=== PATIENT | male | born 1960 | race Caucasian/White ===

== ENCOUNTER 2020-09-18 19:36 | Emergency (ER) | payer OTHER, SELFPAY ==
[2020-09-18 19:46] VITALS: BP 144/95; PULSE 88; RESP 16; TEMP 36.9; O2SAT 100
[2020-09-18] MEDS: TETANUS,DIPHTHERIA,AC PERTUSSIS ADULT (0.5 ML) BOOSTRIX IM (19:50)
--- NOTE | 2020-09-18 19:51 | ED.ANIMALBIT ---
HPI - Animal Bite General Chief Complaint: Animal Bite Stated Complaint: dog bite left calf Time Seen by Provider: 09/18/20 19:48 Source: patient and RN notes reviewed Mode of arrival: ambulatory Limitations: no limitations History of Present Illness HPI narrative: 60-year-old male presents with concern for dog bite. Reports pain to the posterior left lower leg, sustained prior to arrival by an animal known to him. He denies decreased sensation, strength, range of motion distal to the wound. Denies any drainage from wound. Reports he cleaned it and placed a Band-Aid on it. MD complaint: animal bite Related Data Home Medications Medication Instructions Recorded Confirmed amlodipine 09/18/20 apixaban [Eliquis] mg 09/18/20 atorvastatin 09/18/20 chlorthalidone 09/18/20 duloxetine mg PO 09/18/20 hydrochlorothiazide 09/18/20 omeprazole 09/18/20 quinapril mg 09/18/20 sotalol 09/18/20 Allergies Allergy/AdvReac Type Severity Reaction Status Date / Time dronedarone [From Multaq] Allergy Severe Other Verified 09/18/20 19:50 Review of Systems Review of Systems: Narrative: CONSTITUTIONAL: Denies malaise, chills, sweats, or fever. SKIN: Reports dog bite to the back of his MUSCULOSKELETAL: Denies musculoskeletal pain NEUROLOGIC: Denies numbness, weakness All systems reviewed & are unremarkable except as noted in HPI and below PMFSH Comments At time of signature, agree with nursing past medical, surgical, social and family history. There is no relevant family history pertinent to the presenting complaint Exam Narrative: Exam Narrative: GENERAL: Well-appearing, well-nourished, and in no acute distress. HEAD: Normocephalic EYES: PERRLA, conjunctivae clear ENT: Mucous membranes moist. NECK: Supple CHEST: No respiratory distress. Speaks in full sentences. HEART: Normal peripheral pulses. EXTREMITIES: Right lower extremity has grossly normal range of motion, no edema, normal strength and sensation. SKIN: Warm, dry, no rash. Puncture wound surrounded by 3 superficial abrasions noted to the posterior left lower leg without surrounding erythema, edema, induration, no drainage noted NEURO: Alert and oriented x3. PSYCH: Normal mood and affect Course Course Emergency Course: Patient is aware of diagnosis, understands and agrees to treatment plan. Anticipatory guidance given. Patient agrees to follow-up as directed and is aware of reasons to seek care at the emergency department. Portions of this record may have been created with voice recognition software Vital Signs Vital signs: Vital Signs Temperature 98.4 F 09/18/20 19:46 Pulse Rate 88 09/18/20 19:46 Respiratory Rate 16 09/18/20 19:46 Blood Pressure 144/95 H 09/18/20 19:46 Pulse Oximetry 100 09/18/20 19:46 Temperature 98.4 F 09/18/20 19:46 Pulse Rate 88 09/18/20 19:46 Respiratory Rate 16 09/18/20 19:46 Blood Pressure 144/95 H 09/18/20 19:46 Pulse Oximetry 100 09/18/20 19:46 Reviewed. Pt has history of hypertension MDM - Animal Bite MDM Narrative Medical decision making narrative: Exam findings show no acute concerns or changes; patient is non-toxic appearing and is in no distress. Patient is appropriate for outpatient treatment and follow-up. Differential Diagnosis Differential diagnosis: Likely dog bite and rabies contact Critical Care Time Critical Care Time Critical Care Time: No Discharge Plan Discharge Clinical Impression: Dog bite Qualifiers: Encounter type: initial encounter Qualified Code(s): W54.0XXA - Bitten by dog, initial encounter Patient Disposition: Home, Self-Care Condition: Stable Instructions: Animal Bite (ED) Additional Instructions: Keep wound clean, and dry. Apply antibiotic ointment twice daily. Cover with bandage as needed to prevent contamination. Clean with soap and water twice daily, but do not soak, take baths, or swim until wound is completely healed. Do not clean with hy
== END 2020-09-18 20:09 | disposition home or self-care (01) ==
PROVIDERS: Emergency Provider Nurse Practitioner
DX: S81.832A Puncture wound without foreign body, left lower leg, initial encounter (principal); W54.0XXA Bitten by dog, initial encounter; S80.812A Abrasion, left lower leg, initial encounter; Z23 Encounter for immunization; E78.00 Pure hypercholesterolemia, unspecified; I10 Essential (primary) hypertension; K21.9 Gastro-esophageal reflux disease without esophagitis
CPT/HCPCS: 90471; 90715; 99212; G0463

== ENCOUNTER 2020-11-14 15:57 | Emergency (ER) | payer OTHER, SELFPAY ==
[2020-11-14 16:06] VITALS: BP 155/102; PULSE 87; RESP 16; TEMP 36.4; O2SAT 98
--- NOTE | 2020-11-14 16:19 | ED.EAR ---
HPI - Ear Problem General Chief complaint: Ear Stated complaint: Right Ear Pain Time Seen by Provider: 11/14/20 16:10 Source: patient and RN notes reviewed Mode of arrival: ambulatory Limitations: no limitations History of Present Illness HPI Narrative: 60-year-old male presents to the [facility] with sudden onset ear discomfort. States that he woke up feeling just fine this morning. As the day progressed started having a fullness in the right ear. Describes it as as if he was in a airplane changing altitudes. Related Data Home Medications Medication Instructions Recorded Confirmed amlodipine 09/18/20 apixaban [Eliquis] mg 09/18/20 atorvastatin 09/18/20 chlorthalidone 09/18/20 duloxetine mg PO 09/18/20 omeprazole 09/18/20 quinapril mg 09/18/20 sotalol 09/18/20 Viagra 11/14/20 Allergies Allergy/AdvReac Type Severity Reaction Status Date / Time dronedarone [From Multaq] Allergy Severe Other Verified 09/18/20 19:50 Review of Systems Review of Systems: Narrative: CONSTITUTIONAL: Denies fever, chills, or sweats. EYES: Denies visual changes, redness, or discharge. ENT: Denies rhinorrhea, congestion, sore throat, or otalgia. Decreased hearing and fullness in right ear CARDIOVASCULAR: Denies chest pain, palpitations, or edema. RESPIRATORY: Denies cough or dyspnea. GASTROINTESTINAL: Denies abdominal pain, nausea, vomiting, or diarrhea. GENITOURINARY: Denies dysuria or hematuria. SKIN: Denies rash or itching. MUSCULOSKELETAL: Denies back pain, joint pain, or myalgia. NEUROLOGIC: Denies headache, numbness, or weakness. PSYCHIATRIC: Denies anxiety or depression. All other systems reviewed are negative, except as documented in HPI. PMFSH Comments At the time of my signature, I reviewed and agree with the nursing past medical, surgical, social, and family history. There is no relevant family history pertinent to the patient complaint. Exam Narrative: Exam Narrative: GENERAL: This is a well-nourished, well-developed patient, in no apparent distress. HEAD: normocephalic, atraumatic. EYES: PERRL. Sclera clear/white. Vision is grossly intact. EARS: External ears normal, auditory canals clear and without drainage, TMs normal without perforation. Hearing grossly intact. NOSE: External nose normal with no obvious nasal discharge, nares without redness, no rhinorrhea. THROAT: Mucous membranes moist, posterior pharynx clear. NECK: Neck supple, non-tender without lymphadenopathy, masses or thyromegaly. CARDIOVASCULAR: Regular rate and rhythm without murmurs, gallops, or rubs. RESPIRATORY: Clear to auscultation. Breath sounds equal bilaterally. No wheezes, rales, or rhonchi. GASTROINTESTINAL: Abdomen soft, non-tender, nondistended. Bowel sounds are active. No hepato-splenomegaly, or palpable masses. No guarding. SKIN: warm, intact with no suspicious lesions or rash, good texture and turgor. NEURO: awake, alert, and oriented to person, place and time. There were no obvious focal neurologic abnormalities. EXTREMITIES: No clubbing, cyanosis, or edema. No joint tenderness, effusion, or edema noted. BACK: Nontender without deformity. Course Vital Signs Vital signs: Vital Signs Temperature 97.6 F 11/14/20 16:06 Pulse Rate 87 11/14/20 16:06 Respiratory Rate 16 11/14/20 16:06 Blood Pressure 155/102 H 11/14/20 16:06 Pulse Oximetry 98 11/14/20 16:06 Temperature 97.6 F 11/14/20 16:06 Pulse Rate 87 11/14/20 16:06 Respiratory Rate 16 11/14/20 16:06 Blood Pressure 155/102 H 11/14/20 16:06 Pulse Oximetry 98 11/14/20 16:06 Medical Decision Making MDM Narrative Medical decision making narrative: Discussed clinically no acute findings. Discharge instructions reviewed with patient, as well as provided in writing per nursing staff. The instructions also include specific and strict return/GO TO THE ER as well as f/u information. All questions have been answered, and the patient deny any furt
== END 2020-11-14 16:23 | disposition home or self-care (01) ==
PROVIDERS: Emergency Provider Nurse Practitioner; PCP Nurse Practitioner Family
DX: H92.01 Otalgia, right ear (principal); I48.91 Unspecified atrial fibrillation; E78.00 Pure hypercholesterolemia, unspecified; I10 Essential (primary) hypertension; K21.9 Gastro-esophageal reflux disease without esophagitis
CPT/HCPCS: 99211; G0463

== ENCOUNTER → 2023-06-20 10:59 | Outpatient (CLI) | payer OTHER, SELFPAY ==
--- NOTE | ~2023-06-20 | MR_ITS ---
MRI of the left ankle Clinical history: Achilles tendinitis Technique: Coronal proton-density and proton-density fat-sat images, axial proton-density and proton- density fat-sat images, and sagittal proton-density and proton-density fat-sat images were acquired. Findings: Syndesmotic ligaments are intact. Anterior and posterior talofibular ligaments, and calcane ofibular ligament appear intact. There is heterotopic ossification or chronic avulsion fracture fragm ent at the region of the deltoid ligament, which is itself otherwise somewhat poorly imaged. No acute injury evident in this region. Medial flexor tendons, peroneal tendons, anterior extensor tendons, and Achilles tendon are intact. N o significant abnormality of the Achilles tendon itself. There is mild amorphous edema in the posterior, lateral aspect of the calcaneal body. There is retroc alcaneal bursitis. There is mild degenerative change of the tibiotalar and subtalar joints. No signif icant joint effusion evident. Plantar fascia is intact. Normal signal preserved in the sinus Tarsi. There is small ganglion cyst ju st medial to the navicular, measuring 8 mm in diameter. Impression: Retrocalcaneal bursitis with mild amorphous marrow edema in the posterolateral calcaneal body. No pro nounced dorsal bony excrescence, but findings could represent Kayleen's syndrome is advised. Mild degenerative change of the tibiotalar and subtalar joints. 8 mm ganglion cyst just medial to the navicular. Achilles tendon is unremarkable. Reviewed, dictated and finalized at [facility]. Impression: Retrocalcaneal bursitis with mild amorphous marrow edema in the posterolateral calcaneal body. No pronounced dorsal bony excrescence, but findings could repre sent Kayleen's syndrome is advised. Mild degenerative change of the tibiotalar and subtalar joints. 8 mm ganglion cyst just medial to the navicular. Achilles tendon is unremarkable.
== END ==
PROVIDERS: PCP Podiatrist Foot & Ankle Surgery; Visit Provider Podiatrist Foot & Ankle Surgery
DX: M76.62 Achilles tendinitis, left leg (principal)
CPT/HCPCS: 73721

== ENCOUNTER → 2024-10-18 09:06 | Outpatient (CLI) | payer OTHER, SELFPAY ==
--- NOTE | ~2024-10-18 | XR_ITS ---
CHEST RADIOGRAPH, PA AND LATERAL CLINICAL HISTORY: J22 - Unspecified acute lower respiratory infection, cough . COMPARISON: None available TECHNIQUE: PA and lateral views of the chest. FINDINGS The cardiomediastinal silhouette is unremarkable. The lungs are clear. Fixation hardware within the lower cervical spine. Remaining visualized osseous structures are unremarkable. IMPRESSION: No focal infiltrate or effusion. Reviewed, dictated and finalized at location A. [facility]
== END ==
LOC: EXPCRAD 09:07
PROVIDERS: PCP Family Medicine; Visit Provider Family Medicine
DX: J22 Unspecified acute lower respiratory infection (principal)
CPT/HCPCS: 71046

== ENCOUNTER 2024-10-19 06:59 | Emergency (ER) | payer OTHER, SELFPAY ==
--- NOTE | ~2024-10-19 | XR_ITS ---
EXAMINATION: XR chest 2V DATE: 10/19/2024 08:10 INDICATION: Cough and congestion. TECHNIQUE: Frontal and lateral views of the chest were obtained. COMPARISON: Chest 2 views 10/18/2024 FINDINGS: A calcified left lung nodule is consistent with old granulomatous disease. No pleural effus ion or pneumothorax. The heart size is normal. There are changes of anterior fusion procedure in cerv ical spine. IMPRESSION: 1. No acute cardiopulmonary disease. Reviewed, dictated and finalized at location [] [facility]
[2024-10-19 07:01] VITALS: BP 138/82; PULSE 73; RESP 18; TEMP 36.4; O2SAT 99
[2024-10-19 07:17] VITALS: RESP 15; O2SAT 99
--- NOTE | 2024-10-19 07:50 | ED_ITS ---
HPI - General Adult General Chief complaint: Unspecified Stated complaint: possible fungal infection Time Seen by Provider: 10/19/24 07:29 History of Present Illness HPI narrative: 64-year-old male present to the emergency department for evaluation for night sweats body aches fatigue and viral rash. Patient states he was diagnosed with flu 10/13. Patient states that his symptoms have not yet improved. Patient was started on antibiotics by his primary care physician but states symptoms are not improved. Patient's private logic is that he suspects this is a fungal infection because approximately 11 months ago he had similar symptoms and was started on antifungal by his ENT and his symptoms resolved. Related Data Home Medications ?Medication ?Instructions ?Recorded ?Confirmed ?Last Taken ?Type atorvastatin 20 mg tablet 09/18/20 10/16/24 Unknown History sotalol 120 mg tablet 09/18/20 10/16/24 Unknown History Viagra 11/14/20 10/16/24 Unknown History Allergies Allergy/AdvReac Type Severity Reaction Status Date / Time dronedarone (From Multaq) Allergy Severe Other Verified 10/19/24 07:01 Review of Systems 2 Review of Systems: All systems reviewed & are unremarkable except as noted in HPI and below PMFSH Past Medical History Medical History Neck abrasion Hypertension Surgical History Surgical History H/O left wrist surgery H/O Achilles tendon repair H/O right knee surgery Family History Family History Father Hypertension Mother Heart disease Grandparent Heart disease Grandparent Hypertension Heart disease Social History Social History Smoking status: Never smoker Alcohol intake: never Substance use: never Substance use type: does not use Do You Feel Safe in your Home?: Yes Lack of Transportation: No Lack of Food: Never True Current Housing: I Have Housing Concerned About Future Housing: No Difficulty Paying Gas/Electric Bills: No Difficulty Paying for Meds: No Living arrangements: with family Gender identity (if verbalized by the patient): Male Sexual Orientation (if Verbalized by the Patient): Straight or Heterosexual Spiritual care concerns: No Agree to blood products: No Exam 2 Narrative: APPEARANCE: Well appearing, no pain, no distress, well-nourished. HEAD: normocephalic, atraumatic. EYES: PERRLA/EOMI, conjunctivae clear. NOSE: Normal no drainage EARS:TMS clear with good light reflex. THROAT: Pharynx clear, no exudate. NECK: Supple. No adenopathy, no masses. RESPIRATORY: Airway patent, respirations nonlabored. Clear to auscultation bilaterally, no rales, rhonchi, wheezing. CARDIOVASCULAR: Regular rate and rhythm without murmurs rubs or gallops. ABDOMINAL: Soft, nontender, nondistended, normal bowel sounds MUSCULOSKELETAL: Moves all extremities. Strength/ROM intact, No edema, No calf tenderness. NEURO: Alert. Cranial nerves II through XII intact. Grossly intact SKIN: Viral exanthem on chest Course Vital Signs Vital signs: Vital Signs Temperature 97.5 F L 10/19/24 07:01 Pulse Rate 73 10/19/24 07:01 Respiratory Rate 18 10/19/24 07:01 Blood Pressure 138/82 10/19/24 07:01 Pulse Oximetry 99 10/19/24 07:01 Oxygen Delivery Room Air 10/19/24 07:01 Temperature 97.6 F 10/19/24 09:26 Pulse Rate 68 10/19/24 09:26 Respiratory Rate 16 10/19/24 09:26 Blood Pressure 122/80 10/19/24 09:26 Pulse Oximetry 99 10/19/24 09:26 Oxygen Delivery Room Air 10/19/24 07:01 Medical Decision Making [facility] Narrative Medical decision making narrative: 64-year-old male present to the emergency department for evaluation for a viral rash. Patient did test positive for influenza A approximately 5 days ago. Patient is afebrile with no leukocytosis and hemoglobin of 14.3. Patient has no acute abnormalities on his electrolytes. Chest x-ray shows no acute cardiopulmonary abnormality. Differential Diagnosis Differential Diagnosis: Vitals and them, cellulitis, influenza, COVID, RSV, rhabdomyolysis Vital Signs Vital Signs: Vital Signs Temperature 97.5 F L 10/19/24 07:01 Pulse Rate 73 10/19/24 07:01 Respiratory Rate 18 10/19/24 07:01 Blood Pressure 138/82 10/19/24 07:01 Pulse Oximetry 99 10/19/24 07:01 Oxygen Delivery Room Air 10/19/24 07:01 Temperature 97.6 F 10/19/24 09:26 Pulse Rate 68 10/19/24 09:26 Respiratory Rate 16 10/19/24 09:26 Blood Pressure 122/80 10/19/24 09:26 Pulse Oximetry 99 10/19/24 09:26 Oxygen Delivery Room Air 10/19/24 07:01 Lab Data Lab results reviewed: Yes I reviewed the patient's lab results. 10/19/24 07:59 10/19/24 07:59 Labs: Lab Results 10/19/24 Range/Units 07:59 WBC 4.7 (4.5-10.0) K/mm3 RBC 4.77 (4.6-6.20) M/mm3 Hgb 14.3 (14.0-18.0) g/dL Hct 41.8 L (42.0-52.0) % MCV 87.6 (80-100) fl MCH 30.0 (26-34) pg MCHC 34.2 (32-36) g/dl RDW 12.3 (11.5-14.5) % Plt Count 212 (150-375) k/mm3 MPV 9.5 (7.4-10.4) fl Immature Gran % (Auto) 0.6 H (0-0.5) % Neut % (Auto) 56.8 (45.5-73.1) % Lymph % (Auto) 31.2 (18.3-44.2) % Dolores % (Auto) 10.3 H (2.6-8.5) % Eos % (Auto) 0.9 (0-4.4) % Baso % (Auto) 0.2 (0.2-1.2) % Lymph # (Auto) 1.45 (0.9-3.2) K/mm3 Dolores # (Auto) 0.5 (0.1-0.6) K/mm3 Eos # (Auto) 0.0 (0-0.3) K/mm3 Baso # (Auto) 0.0 (0.0-0.1) K/mm3 Abs Immat Gran (auto) 0.03 (0.00-0.031) K/mm3 Absolute Neuts (auto) 2.6 (1.3-6.7) K/mm3 Absolute Nucleated RBC 0.000 (0.0-0.012) K/mm3 Nucleated RBC % 0.0 (0.0-0.2) % Atypical Lymphocytes Present Platelet Estimate Adequate (Adequate) Schistocytes None seen Sodium 136 L (137-145) mmol/L Potassium 4.2 (3.4-5.0) mmol/L Chloride 100 (98-107) mmol/L Carbon Dioxide 27 (22-30) mmol/L Anion Gap 9 (4-12) mmol/L BUN 13 (9-20) mg/dL Creatinine 0.62 L (0.7-1.3) mg/dL Estim Creat Clear Calc 124 ml/min Estimated GFR > 60 (59 - ) Glucose 101 (65-110) mg/dL Lactic Acid 1.7 (0.7-2.0) mmol/L Calcium 9.1 (8.4-10.2) mg/dL Total Bilirubin 1.0 (0.2-1.3) mg/dL AST 35 (17-59) U/L ALT 50 (6-50) U/L Alkaline Phosphatase 84 (38-126) U/L Total Creatine Kinase 47 L (55-170) U/L Total Protein 8.0 (6.3-8.2) g/dL Albumin 4.5 (3.5-5.1) g/dL Imaging Data Radiologist's impression: Impressions Chest X-Ray 10/19/24 08:11 IMPRESSION: 1. No acute cardiopulmonary disease. Discharge Plan Discharge Clinical Impression: Viral exanthem Patient Disposition: Home, Self-Care Condition: Stable Instructions: Antibiotic Form, Viral Syndrome (ED), Viral Exanthem (ED) Additional Instructions: Tylenol and ibuprofen for fever and for body aches. Drink plenty of fluids. Have close follow-up with your primary care physician. If you have any worsening symptoms then please call or return to the emergency department. Patient Language: Scottish Prescriptions: No Action atorvastatin 20 mg tablet sotalol 120 mg tablet Viagra cefdinir 300 mg capsule 300 mg PO Q12H 10 Days Qty: 20 0RF benzonatate 200 mg capsule 200 mg PO TID PRN (Reason: cough) 10 Days Qty: 30 0RF albuterol sulfate [Ventolin HFA] 90 mcg/actuation HFA aerosol inhaler 1 inh inhalation Q4H PRN (Reason: shortness of breath or wheezing) Qty: 8.5 0RF Follow-up/Referrals: Zuleyma Pink MD [Primary Care Provider] -
[2024-10-19] MEDS: SODIUM CHLORIDE 0.9% IV 1,000 ML 999 ML IV CONT (07:59)
[2024-10-19 08:06] LABS: Basophils Percent Auto 0.2 % (0.2-1.2); Eosinophils Percent Auto 0.9 % (0-4.4); Hematocrit 41.8 % (42.0-52.0); Hemoglobin 14.3 g/dL (14.0-18.0); Immature Granulocyte Absolute 0.03 K/mm3 (0.00-0.031); Immature Granulocyte Percent A 0.6 % (0-0.5); Lymphocytes Absolute Auto 1.45 K/mm3 (0.9-3.2); Lymphocytes Percent Auto 31.2 % (18.3-44.2); Mean Corpuscular HGB Conc 34.2 g/dl (32-36); Mean Corpuscular Volume 87.6 fl (80-100); Mean Platelet Volume 9.5 fl (7.4-10.4); Monocytes Absolute Auto 0.5 K/mm3 (0.1-0.6); Monocytes Percent Auto 10.3 % (2.6-8.5); Neutrophils Absolute Auto 2.6 K/mm3 (1.3-6.7); Neutrophils Percent Auto 56.8 % (45.5-73.1); Platelet Count Result 212 k/mm3 (150-375); Red Blood Count 4.77 M/mm3 (4.6-6.20); Red Cell Distribution Width 12.3 % (11.5-14.5); White Blood Count 4.7 K/mm3 (4.5-10.0)
[2024-10-19 08:16] LABS: Alanine Aminotransferase 50 U/L (6-50); Albumin Level 4.5 g/dL (3.5-5.1); Alkaline Phosphatase 84 U/L (38-126); Anion Gap 9 mmol/L (4-12); Aspartate Amino Transferase 35 U/L (17-59); Blood Urea Nitrogen 13 mg/dL (9-20); Calcium 9.1 mg/dL (8.4-10.2); Carbon Dioxide 27 mmol/L (22-30); Chloride 100 mmol/L (98-107); Creatine Kinase 47 U/L (55-170); Estimated CRCL calculation 124 ml/min; Estimated Glomerular Filt Rate > 60; Glucose 101 mg/dL (65-110); Lactic Acid Reflex 1.7 mmol/L (0.7-2.0); Potassium 4.2 mmol/L (3.4-5.0); Sodium 136 mmol/L (137-145)
[2024-10-19 08:27] LABS: Atypical Lymphocytes Present; Platelet Estimate Adequate (Adequate); Schistocytes None Seen
[2024-10-19 08:35] VITALS: BP 110/71; PULSE 70; RESP 15; O2SAT 100
[2024-10-19 09:26] VITALS: BP 122/80; PULSE 68; RESP 16; TEMP 36.4; O2SAT 99
--- OUTSIDE RECORDS SUMMARY | 2024-10-22 11:28 | XMS_ITS | Patient Health Summary ---
Author Organization [facility] Address [address] [address] Care Team Providers Care Stationary Engineer Apprentice Name Role Phone Ronal Matson GEOVANY-ANTONY Primary Care Provider [phone] Note from [facility],non-owned Affiliates and Associated Physician Practices is amultiple site organization consisting of ambulatory clinics and hospital sitesin [place], [place], [place] and [place]. This disclosure is being madepursuant to the Care Everywhere program and may not contain all information available regarding this patient. Last updated 18.[facility] Allergies * Dronedarone(Rash) -Medium Criticality * Amlodipine Base,Inactive * Penicillin G(Unknown),Inactive * Penicillins,Inactive * Quinapril(Unknown),Inactive Medications * Be aware that medications may not be up to date on this document. Alwaysverify current medications with the patient. * omeprazole EC (PRILOSEC OTC) 20 MG tablet Take 1 (one) tablet by mouth daily before breakfast * atorvastatin (LIPITOR) 20 MG tablet Take 1 (one) tablet by mouth at bedtime * DULoxetine (CYMBALTA) 30 MG capsule Take 1 (one) capsule by mouth once daily * chlorthalidone (HYGROTON) 25 MG tablet(Started 07/15/2020) Take 1 tablet by mouth once daily 5 refills by 07/15/2021 * sotalol (BETAPACE) 120 MG tablet(Started 09/01/2020) Take 1 tablet by mouth 2 times daily 3 refills by 09/01/2021 * cyclobenzaprine (FLEXERIL) 10 MG tablet Take 10 mg by mouth * losartan (COZAAR) 25 MG tablet(Started 07/15/2021) * predniSONE (DELTASONE) 5 MG tablet(Started 12/13/2021) Take 5 mg by mouth once daily * ibuprofen (MOTRIN) 200 MG tablet Take 2 (two) tablets by mouth as needed * HYDROcodone-acetaminophen (NORCO) 5-325 MG tablet(Started 02/01/2021) * dilTIAZem coated beads 24hr (CARDIZEM CD) 120 MG capsule(Started 02/14/2022) Take 1 capsule by mouth once daily * clonazePAM, disintegrating, (KLONOPIN WAFER) 0.25 MG tablet(Started 12/14/2021) Take 1 (one) tablet by mouth 2 times daily as needed * amitriptyline (ELAVIL) 10 MG tablet(Started 10/06/2021) TAKE 1 TABLET BY MOUTH EVERY DAY AT NIGHT * albuterol HFA (Proventil; Ventolin; Proair) 108 (90 Base) MCG/ACT inhaler (Started 11/17/2023) Inhale 2 (two) puffs by mouth every 4 hours as needed * clonazePAM (KlonoPIN) 0.5 MG tablet(Started 10/10/2023) Take 1 (one) tablet by mouth as needed * dilTIAZem SR 24hr (Dilacor XR) 240 MG capsule(Started 12/01/2023) Take 1 (one) capsule by mouth once daily * DULoxetine (Cymbalta) 60 MG capsule(Started 11/06/2023) Take 1 (one) capsule by mouth once daily * fluticasone propionate (Flonase) 50 MCG/ACT nasal spray(Started 11/16/2023) [place] 1 (one) spray to 2 (two) sprays into the nose as needed * losartan (Cozaar) 50 MG tablet(Started 11/30/2023) Take 1 (one) tablet by mouth once daily * omeprazole EC (PriLOSEC OTC) 20 MG tablet(Started 12/05/2023) Take 1 (one) tablet by mouth 2 times daily, before breakfast and supper for 30 days 3 refills by 12/04/2024 * sildenafil (Viagra) 100 MG tablet(Started 09/16/2024) 1/2-1 tab on an empty stomach as needed before sexual activity 2 refills by 09/16/2025 * tamsulosin (Flomax) 0.4 MG capsule(Started 09/16/2024) Take 1 (one) capsule by mouth once daily At the same time every day after a meal. 3 refills by 09/16/2025 * benzonatate (Tessalon) 200 MG capsule(Started 10/16/2024) Take 1 (one) capsule by mouth 3 times daily * cefdinir (Omnicef) 300 MG capsule(Started 10/16/2024) Take 1 (one) capsule by mouth 2 times daily * fluconazole (Diflucan) 150 MG tablet(Started 10/20/2024) Take 1 (one) tablet by mouth once daily for 14 days Active Problems Problem Noted Date Diagnosed Date MICKY (obstructive sleep apnea) 12/05/2023 Tonsillar hypertrophy 12/05/2023 Nasal septal deviation 12/05/2023 Nasal turbinate hypertrophy 12/05/2023 Perennial allergic rhinitis 12/05/2023 Sensorineural hearing loss (SNHL) of both ears 0 12/05/2023 Gastroesophageal reflux dise ase with esophagitis without hemorrhage 12/05/2023 Diverticulosis 12/07/2020 External hemorrhoids 12/07/2020 PAF (paroxysmal atrial fibrillation) 05/09/2020 Hypercholesteremia 11/19/2016 Anxiety disorder 11/19/2016 Precordial pain 11/19/2016 Essential hypertension 11/19/2016 Symptomatic PVCs 06/09/2013 Resolved Problems Problem Noted Date Diagnosed Date Resolved Date Thrush 12/05/2023 01/02/2024 Heart disease 07/24/2013 11/19/2016 Hypertensive heart disease w [facility] heart failure 07/07/2013 05/09/2020 Immunizations * Covid Moderna primary monovalent 12+ yr 0.5mL(Given 08/31/2021, 12/19/2020, 11/03/2020) * HEP A VACCINE, ADULT(Given 03/31/2013) * PNEUMOCOCCAL PPSV23(Given 07/21/2020) Social History Tobacco Use Types Packs/Day Years Used Date Smoking Tobacco: Former Smokeless Tobacco: Former Tobacco Cessation:Counseling Given: Not Answered Alcohol Use Standard Drinks/Week Comments Not Currently 15 (1 standard drink = 0.6 oz pu re alcohol) Sex and Gender Information Value Date Recorded Sex Assigned at Not on file Gender Identity Not on file Sexual Orientation Not on file Last Filed Vital Signs Vital Sign Reading Time Taken Comments Blood Pressure 131/84 10/20/2024 9:19 AM TRAFFIC TECHNICIAN Pulse 80 10/20/2024 9:19 AM TRAFFIC TECHNICIAN Temperature 37.1 ??C (98.7 ??F) 09/16/2024 4:16 PM CS T Respiratory Rate 18 02/16/2022 3:34 PM CDT Oxygen Saturation 98% 09/16/2024 4:16 PM TRAFFIC TECHNICIAN Inhaled Oxygen Concentration - - Weight 105.7 kg (233 lb) 10/20/2024 9:19 AM TRAFFIC TECHNICIAN Height 182.9 cm (6') 10/20/2024 9:19 AM TRAFFIC TECHNICIAN Body Mass Index 31.6 10/20/2024 9:19 AM TRAFFIC TECHNICIAN Procedures * KS LARYNGOSCOPY,FLEX FIBER,DIAGNOSTIC(Performed 10/20/2024) Performed for MICKY (obstructive sleep apnea), Perennial allergic rhinitis, Sensorineural hearing loss (SNHL) of both ears, Gastroesophageal reflux disease with esophagitis without hemorrhage, Thrush * URINALYSIS W/MICROSCOPIC NO CULTURE(Performed 09/16/2024) Performed for Lower urinary tract symptoms (LUTS) * URINALYSIS AUTO - POINT OF CARE (AMB) [facility](Performed 09/16/2024) Performed for Lower urinary tract symptoms (LUTS) * KS MSR PVR U&/BLADD CAPCTY US NON(Performed 09/16/2024) Performed for Lower urinary tract symptoms (LUTS) * KS LARYNGOSCOPY,FLEX FIBER,DIAGNOSTIC(Performed 12/05/2023) Performed for MICKY (obstructive sleep apnea), Perennial allergic rhinitis, Sensorineural hearing loss (SNHL) of both ears, Gastroesophageal reflux disease with esophagitis without hemorrhage, Thrush * KS MSR PVR U&/BLADD CAPCTY US NON(Performed 04/10/2023) Performed for History of BPH * URINALYSIS AUTO - POINT OF CARE (AMB) [facility](Performed 04/10/2023) Performed for History of BPH * KS MSR PVR U&/BLADD CAPCTY US NON(Performed 02/16/2022) Performed for History of BPH * URINALYSIS AUTO - POINT OF CARE (AMB) [facility](Performed 02/16/2022) Performed for History of BPH * KS MSR PVR U&/BLADD CAPCTY US NON(Performed 08/11/2021) Performed for Epididymal mass * URINALYSIS AUTO - POINT OF CARE (AMB) [facility](Performed 08/11/2021) Performed for Epididymal mass * KS LABYRINTHOTOMY(Performed 12/01/2020) Performed for Right asymmetrical SNHL * KS LABYRINTHOTOMY(Performed 11/24/2020) Performed for Sudden-onset sensorineural hearing loss * AUDIOLOGY/TYMPANOMETRY ORDER(Performed 11/21/2020) * EKG 12-LEAD(Performed 10/26/2020) Performed for PAF (paroxysmal atrial fibrillation) ([facility] Encounter for monitoring sotalol therapy * EKG 12-LEAD(Performed 09/06/2020) Performed for PAF (paroxysmal atrial fibrillation) ([facility]) * EKG 12-LEAD(Performed 09/02/2020) Performed for PAF (paroxysmal atrial fibrillation) ([facility]), Encounter for monitoring sotalol therapy * EKG 12-LEAD(Performed 09/01/2020) Performed for PAF (paroxysmal atrial fibrillation) ([facility]) * BASIC METABOLIC PANEL (CALCIUM TOTAL)(Performed 08/11/2020) Performed for Essential hypertension * EKG 12-LEAD(Performed 05/27/2020) Performed for Hypertensive heart disease without heart failure, Symptomatic PVCs * CARDIOVERSION(Performed 05/09/2020) * ECHOCARDIOGRAM STRESS(Performed 03/24/2018) Performed for Hypertensive heart disease without heart failure, Precordial pain, Preop cardiovascular exam * EKG 12-LEAD(Performed 03/20/2018) * LAB MISC TEST(Performed 08/29/2016) * LAB HISTORICAL RESULTS-ONBASE(Performed 06/29/2010) * LAB HISTORICAL RESULTS-ONBASE(Performed 06/29/2010) * LAB HISTORICAL RESULTS-ONBASE(Performed 06/29/2010) * LAB HISTORICAL RESULTS-ONBASE(Performed 06/29/2010) * LAB HISTORICAL RESULTS-ONBASE(Performed 06/29/2010) Results * KS LARYNGOSCOPY,FLEX FIBER,DIAGNOSTIC (10/20/2024 5:16 PM TRAFFIC TECHNICIAN) Narrative Surya Martinez MD - 10/20/2024 5:16 PM TRAFFIC TECHNICIAN Surya Martinez MD ? 10/20/2024 ??5:20 PM Procedure Note Anesthesia: Lidocaine 2% and Pola-Synephrine 1/2% Endoscopy Type: ??Flexible Bzhog-Etwshzbzwhsdnx-Tpozxdjbikaq Procedure Details: Informed consent was obtained. ??The patient was placed in the sitting position. ??After topical anesthesia and decongestion, the 4 mm laryngoscope was passed. ??The nasal cavities, nasopharynx, oropharynx, hypopharynx, and larynx were all examined. ??Vocal cords were examined during respiration and phonation. ??The following findings were noted: ??Normal nasal cavity. ??Adenoids obstructing 5% of postnasal space (normal less than 40%). ?? Moderate diffuse erythema of hypopharynx and larynx, no obvious adherent plaques or fungal debris (though could still be c/w low grade thrush). ??Otherwise normal nasopharynx, oropharynx, hypopharynx, and larynx. ??Good TVC mobility bilaterally. ?? The patient tolerated procedure well. Complications: None Surya Martinez MD PROCEDURE/MINOR S URGICAL ORDERABLES * (ABNORMAL) URINALYSIS W/MICROSCOPIC NO CULTURE (09/16/2024 4:40 PM TRAFFIC TECHNICIAN) Color UA Yellow Straw, Yellow 09/16/2024 5:03 PM [facility] Clarity UA Clear Clear 09/16/2024 5:03 PM [facility] Specific Exline UA 1.016 1.005 - 1.030 09/16/2024 5:03 PM [facility] pH UA 5.0 5.0 - 8.0 pH 09/16/2024 5:03 PM [facility] Protein UA Negative Negative 09/16/2024 5:03 PM [facility] Glucose UA Negative Negative 09/16/2024 5:03 PM [facility] Ketone UA Negative Negative 09/16/2024 5:03 PM [facility] Bilirubin UA Negative Negative 09/16/2024 5:03 PM [facility] Blood UA 1+(A) Negative 09/16/2024 5:03 PM [facility] Nitrite UA Negative Negative 09/16/2024 5:03 PM [facility] Leukocyte Esterase Negative Negative 09/16/2024 5:03 PM [facility] Urobilinogen UA Negative Negative mg/dL 09/16/2024 5:03 PM [facility] RBC UA 0-2 None Seen, 0-2, 3-5 /HPF 09/16/2024 5:03 PM [facility] WBC UA 0-5 None Seen, 0-5 /HPF 09/16/2024 5:03 PM [facility] Squamous Epithelial Cells UA None Seen None Seen, 0-2, 3-5 /HPF 09/16/2024 5:03 PM [facility] Urine URINE SPECIMEN OBTAINED BY CLEAN CATCH PROCEDURE / Unknown Collection / Unknown 09/16/2024 4:40 PM TRAFFIC TECHNICIAN 09/16/2024 4:51 PM TRAFFIC TECHNICIAN Narrative [facility] - 09/16/2024 5:03 PM TRAFFIC TECHNICIAN Jose Martin Weinstein MD LAB - URINALYSIS O RDERABLES [address] [address], [facility] [phone] * URINALYSIS AUTO - POINT OF CARE (AMB) [facility] (09/16/2024 4:25 PM TRAFFIC TECHNICIAN) Only the most recent of4 resultswithin the time period is included. Glucose UA neg [facility] [address] Bilirubin UA POCT neg [facility] [address] Ketones UA POCT neg [facility] [address] Specific Exline UA 1.[address] [facility] [address] Blood Urine POCT +- 10Ery/uL [facility] [address] pH UA 6.0 [facility] [address] Protein UA neg [facility] [address] Urobilinogen UA neg 0.2mg/dL [facility] [address] Nitrite UA neg [facility] [address] WBC UA neg [facility] [address] Urine URINE / Unknown 09/16/2024 4 :25 PM TRAFFIC TECHNICIAN Jose Martin Weinstein MD LAB - POINT OF CAR E ORDERABLES [facility] [address] [facility] [address] [place] [address], [facility] [phone] * KS MSR PVR U&/BLADD CAPCTY US NON (09/16/2024 4:24 PM TRAFFIC TECHNICIAN) Narrative Nikita Garcia MA - 09/16/2024 4:24 PM TRAFFIC TECHNICIAN Nikita Garcia MA ? 09/16/2024 ??4:43 PM PVR=39mL Jose Martin Weinstein MD PROCEDURE/MINOR MOTLEY RGICAL ORDERABLES * KS LARYNGOSCOPY,FLEX FIBER,DIAGNOSTIC (12/05/2023 5:34 PM TRAFFIC TECHNICIAN) Narrative Surya Martinez MD - 12/05/2023 5:34 PM TRAFFIC TECHNICIAN Surya Martinez MD ? 12/05/2023 ??5:38 PM Procedure Note Anesthesia: Lidocaine 2% and Pola-Synephrine 1/2% Endoscopy Type: ??Flexible Tpape-Upcwvwrssjqlpz-Gpbluttyjvjq Procedure Details: Informed consent was obtained. ??The patient was placed in the sitting position. ??After topical anesthesia and decongestion, the 4 mm laryngoscope was passed. ??The nasal cavities, nasopharynx, oropharynx, hypopharynx, and larynx were all examined. ??Vocal cords were examined during respiration and phonation. ??The following findings were noted: ??Normal nasal cavity bilaterally. ?? No polyps, masses, or drainage. ??Some increased erythema and shallow ulcerations in the hypopharynx (similar to oral cavity). ?? Otherwise normal nasopharynx, oropharynx, hypopharynx. ??Good TVC mobility bilaterally. Mild postglottic edema, possibly c/w GERD. ?? The patient tolerated procedure well. Complications: None Surya Martinez MD PROCEDURE/MINOR S URGICAL ORDERABLES * KS MSR PVR U&/BLADD CAPCTY US NON (04/10/2023 3:51 PM CDT) Narrative Soniya Abdul LPN - 04/10/2023 3:51 PM CDT Soniya Abdul LPN ? 04/10/2023 ??3:52 PM PVR = 139 mL Jose Martin Weinstein MD PROCEDURE/MINOR MOTLEY RGICAL ORDERABLES * KS MSR PVR U&/BLADD CAPCTY US NON (02/16/2022 3:44 PM CDT) Narrative Hinds Nishajayeshjerrica - 02/16/2022 3:44 PM CDT Mayte Hinds ? 02/16/2022 ??3:48 PM Bladder scan completed. 166ml post void residual. Jose Martin Weinstein MD PROCEDURE/MINOR MOTLEY RGICAL ORDERABLES * KS MSR PVR U&/BLADD CAPCTY US NON (08/11/2021 11:32 AM TRAFFIC TECHNICIAN) Narrative Kathie Tijerina - 08/11/2021 11:32 AM TRAFFIC TECHNICIAN Kathie Tijerina ? 08/11/2021 ??1:40 PM PVR is 67 mL. Jose Martin Weinstein MD PROCEDURE/MINOR MOTLEY RGICAL ORDERABLES * KS LABYRINTHOTOMY (12/01/2020 9:31 PM TRAFFIC TECHNICIAN) Narrative Surya Santiago MD - 12/01/2020 9:31 PM TRAFFIC TECHNICIAN Surya Santiago MD ? 12/01/2020 ??9:44 PM Procedure Note Procedure: ??Transtympanic Steroid Injection ??right Anesthesia: Topical phenol Indications: The patient has a hx of right ??which has has been recalcitrant in nature and has failed other therapies. ??They understand the risks and benefits of transtympanic steroidinjection and wishes to proceed. Procedure Details: ??After obtaining consent the patient was placed in a supine position and the head was turned in a lateral position. The ipsilateral ear was examined with an operating microscope. ?? The ear canal was clearedof cerumen and when the TM could be fully visualized the TM in the posterior inferior quadrant demonstrated a residual perforation. A 25 gauge spinal needle was then utilized to inject 0.5 cc of 40 mg/ml of kenalog into the middle ear space via the perforation Findings: healthy middle ear mucosa. Condition: Stable. ??Patient tolerated procedure well. Complications: None I was present for the entirety of the procedure Surya Santiago MD PROCEDURE/MINOR S URGICAL ORDERABLES * KS LABYRINTHOTOMY (11/24/2020 7:40 PM TRAFFIC TECHNICIAN) Narrative Surya Santiago MD - 11/24/2020 7:40 PM TRAFFIC TECHNICIAN Surya Santiago MD ? 11/24/2020 ??7:46 PM Procedure Note Procedure: ??Transtympanic Steroid Injection ??right Anesthesia: Topical phenol Indications: The patient has a hx of right sided SSNHL which has has been recalcitrant in nature and has failed other therapies. ?? They understand the risks and benefits of transtympanic steroid injection and wishes to proceed. Procedure Details: ??After obtaining consent the patient was placed in a supine position and the head was turned in a lateral position. The ipsilateral ear was examined with an operating microscope. ?? The ear canal was clearedof cerumen and when the TM could be fully visualized a minute amount of phenol was applied using a micro cotton tip applicator to the TM in the posterior inferior quadrant. A 25 gauge spinal needle was then utilized to inject 0.5 cc of 40 mg/ml kenalog into the middle ear space. Findings: Well aerated right middle ear. Condition: Stable. ??Patient tolerated procedure well. Complications: None I was present for the entirety of the procedure Surya Santiago MD PROCEDURE/MINOR S URGICAL ORDERABLES * AUDIOLOGY/TYMPANOMETRY ORDER (11/21/2020 9:19 AM TRAFFIC TECHNICIAN) Narrative Elvie Patterson Jaqueline - 11/21/2020 9:52 AM TRAFFIC TECHNICIAN History: Huang Royal arrived for a hearing evaluation. ??Patient reports issues with sudden hearing loss, tinnitus, and ear fullness. ??He reports some initial off balance feeling. ??He denies otalgia. ?? There is a minimal history of noise exposure. There is a family history of hearing loss. ?? There is not a history of surgery on either ear(s). Results: Puretone air/bone conduction testing revealed a normal sloping to profound sensorineural hearing loss in the right ear and a normal sloping to moderate sensorineural hearing loss 3000 Hz through 4000 Hz, rising to normal hearing 6000 Hz through 8000 Hz. ??Speech understanding was good in the right ear and excellent in the left ear. Immittance measures revealed a Type A tympanogram in the right ear, indicating normal middle ear function. ??Results for the left ear revealed a Type As tympanogram, indicating shallow middle ear function in that ear. Recommendations: 1) ENT consult. 2) Hearing evaluation per medical recommendation/following treatment. 3) Amplification pending medical clearance/interest. Jaqueline Leone. [facility]-A Clinical Home Health Specialist [facility]-Department of Otolaryngology/Audiology [facility] [address] [place] [address] ([facility]) [place] [address] Elvie Parsons AUDIOLOGY SERVICES O RDERABLES * EKG 12-LEAD (10/26/2020 12:50 PM TRAFFIC TECHNICIAN) Only the most recent of6 resultswithin the time period is included. Narrative BaldomeroAby royal - 10/26/2020 12:50 PM TRAFFIC TECHNICIAN Ayan Cee RN ? 10/26/2020 12:52 PM See scan Procedure Note Ayan Cee RN - 10/26/2020 12:50 PM CST See scan Mor Ku MD ECG ORDERABLES * (ABNORMAL) BASIC METABOLIC PANEL (BMP) (08/11/2020 3:19 PM TRAFFIC TECHNICIAN) Glucose 110(H) 65 - 99 mg/dL [facility] INSURANCE BILL BUN 17 6 - 24 mg/dL [facility] INSURANCE BILL Creatinine 0.89 0.76 - 1.27 mg/dL [facility] INSURANCE BILL eGFR by MDRD 94 >59 mL/min/1.7 3 [facility] INSURANCE BILL eGFR by MDRD 108 >59 mL/min/1.7 3 [facility] INSURANCE BILL BUN/Creatinine Ratio 19 9 - 20 [facility] INSURANCE BILL Sodium 136 134 - 144 mmol/L [facility] INSURANCE BILL Potassium 3.9 3.5 - 5.2 mmol/L [facility] INSURANCE BILL Chloride 93(L) 96 - 106 mmol/L [facility] INSURANCE BILL CO2 25 20 - 29 mmol/L [facility] INSURANCE BILL Calcium 9.8 8.7 - 10.2 mg/dL [facility] INSURANCE BILL Blood BLOOD SPECIMEN / Unknown 08/11/2020 3:19 PM TRAFFIC TECHNICIAN 08/11/2020 Narrative Resulting Agency Comment Lab Testing performed at: [facility] [address] ??[facility] [id number] Mor Ku MD LAB - CHEMISTRY JEANCARLOSJuventino RAGSDALE [facility] INSURANCE BILL [address] [place] [address] * CARDIOVERSION (05/09/2020) Historical Provider MD GENERAL JANNETH Pena ORDERABLES * ECHOCARDIOGRAM STRESS (03/24/2018 3:03 PM CDT) Narrative Maura Espinal RDMS - 03/24/2018 3:03 PM CDT Maura Espinal RDMS ? 03/24/2018 ??3:03 PM See scan Mor Ku MD ECHO ORDERABLES * LAB MISC TEST (08/29/2016) Other BLOOD SPECIMEN / Unknown Eliana Castillo RN LAB SEND OUT * LAB HISTORICAL RESULTS-ONBASE (06/29/2010) Only the most recent of5 resultswithin the time period is included. 06/29/2010 Historical Provider LAB - CHEMISTRY [facility] Care Teams Stationary Engineer Apprentice Relationship Specialty Start Date End Date Ronal Matson APRN-[employer]SULTANT [address] [id number] PCP - General Nurse Practitioner 03/24/18
--- OUTSIDE RECORDS SUMMARY | 2024-10-22 11:28 | XMS_ITS | Clinical Summary ---
Author Organization [facility] Address [address] [place] [address] [address] [place], [place] [address] Phone Care Team Providers Care Director Safety Council Name Role Phone [facility], External Provider Primary Care Provider U cathleenailmarilyn Allergies Active Allergy Reactions Criticality Noted Date Comments Amlodipine Other (See Comments) 03/02/2013 Stiff neck Penicillin G Unknown 08/22/2010 Quinapril Unknown Medications pregabalin (LYRICA) 150 mg Oral Cap Take 1 Cap by mouth daily. Active aspirin (MILAN) 81 mg Oral Tab Take 1 Tab by mouth daily. Active escitalopram (LEXAPRO) 10 mg Oral tablet Take 1 Tab by mouth daily. Active simvastatin (ZOCOR) 20 mg tablet TAKE 1 TABLET IN THE EVENING 90 Tab 3 05/17/2014 Active carvedilol (COREG) 12.5 mg tablet Take 1 Tab by mouth 2 times daily. 180 Tab 3 05/23/2014 Active quinapril (ACCUPRIL) 20 mg tablet Take 1 Tab (20 mg) by mouth 2 times daily. 180 Tab 3 01/03/2015 Active Active Problems Patient Care Coordination No te Formatting of this note migh t be different from the original. Payroll Coordinator - Dr Mor Ku Problem Noted Date Diagnosed Date Diastolic dysfunction, left ventricle 07/24/2013 Benign hypertensive heart disease without heart failure 07/07/2013 Overview (07/07/2013): Echo 06/2013 -- Moderate to severe asymmetric septal hypertrophy with mild to moderate concentric hypertrophy Obesity 03/25/2013 Chest pain Overview (07/04/2011): Chest pain syndrome with a negative cardiac catheterization in 2009, showing only angiographic plaquing and mild ectasia Anxiety disorder Hyperlipidemia Ganglion cyst Overview (08/22/2010): Ganglion cyst removal Resolved Problems Problem Noted Date Diagnosed Date Resolved Date Essential hypertension, benign 03/25/2013 07/07/2013 Hypertension 03/25/2013 Family History Medical History Relation Name Comments Heart Disease Mother Valve problem Relation Name Status Comments Mother Social History Tobacco Use Types Packs/Day Years Used Date Smoking Tobacco: Former Comments:and a former cocain e user Alcohol Use Standard Drinks/Week Comments No 0 (1 standard drink = 0.6 oz pur e alcohol) Sex and Gender Information Value Date Recorded Sex Assigned at Not on file Legal Sex 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 Gender Identity Not on file Sexual Orientation Not on file Last Filed Vital Signs Vital Sign Reading Time Taken Comments Blood Pressure 118/88 07/24/2013 7:55 AM CDT Pulse 52 07/24/2013 7:55 AM CDT Temperature - - Respiratory Rate - - Oxygen Saturation - - Inhaled Oxygen Concentration - - Weight 96.6 kg (213 lb) 07/24/2013 7:55 AM CDT Height 180.3 cm (5' 11 ) 07/24/2013 7:55 AM CDT Body Mass Index 29.71 07/24/2013 7:55 AM CDT Plan of Treatment Health Maintenance Due Date Last Done Comments DTAP/TDAP/TD VACCINES (1 - Tdap) 1980 FIT-DNA Q 3 years 2006 FIT/FOBT Q 1 year 2006 Flex Sig/CT Colonography Q 5 years 2006 ZOSTER VACCINE (1 of 2) 2011 RSV VACCINE (60+ or ) (1 - Risk 60-74 years 1-dose series) 2021 INFLUENZA VACCINE (#1) 2024 COLORECTAL SCREENING 09/13/2030 09/13/2020 Colorectal Cancer Screening 09/13/2030 Insurance Care Teams Director Safety Council Relationship Specialty Start Date End Date [facility], External Provider [address] [place] [address] PCP - General 12/08/20
--- OUTSIDE RECORDS SUMMARY | 2024-10-22 11:28 | XMS_ITS | Referral Summary ---
Author Organization [facility] Address [address] [facility] [place] [address] Care Team Providers Care Powdered Metal Supervisor Name Role Phone Ronal Matson APRN-LOG INSPECTOR Primary Care Provider [phone] Source Comments [facility],non-owned Affiliates and Associated Physician Practices is amultiple site organization consisting of ambulatory clinics and hospital sitesin [place], [place], [place] and [place]. This disclosure is being madepursuant to the Care Everywhere program and may not contain all information available regarding this patient. Last updated 18.[facility] Encounters Date Type Department Care Team Description 10/20/2024 Travel 10/20/2024 9:15 AM EMS EDUCATOR Office Visit [facility] [address] [place] [phone] Surya Martinez MD MICKY (obstructive sleep apnea) (Primary Dx); Perennial allergic rhinitis; Sensorineural hearing loss (SNHL) of both ears; Gastroesophageal reflux disease with esophagitis without hemorrhage; Thrush 10/15/2024 Travel 09/16/2024 4:50 PM EMS EDUCATOR - 09/16/2024 11:59 PM EMS EDUCATOR Hospital Encounter [facility] [address] [place] [phone] Discharge Disposition: Home or Self Care 09/16/2024 4:00 PM EMS EDUCATOR Office Visit [facility] - Urology [address] [place] [phone] Jose Martin Weinstein MD Lower urinary tract symptoms (LUTS) (Primary Dx) 09/10/2024 Orders Only [facility] [address] [facility], [place] [phone] Karlee Rivas LPN History of BPH from Last 3 Months Allergies Active Allergy Reactions Criticality Noted Date Comments Dronedarone Rash Medium 02/25/2021 Medications * Be aware that medications may not be up to date on this document. Alwaysverify current medications with the patient. Medication Sig Dispensed Refills Start Date End Date Status omeprazole EC (PRILOSEC OTC) 20 MG tablet Take 1 (one) tablet by mouth daily before breakfast Active atorvastatin (LIPITOR) 20 MG tablet Take 1 (one) tablet by mouth at bedtime Active DULoxetine (CYMBALTA) 30 MG capsule Take 1 (one) capsule by mouth once daily Active chlorthalidone (HYGROTON) 25 MG tablet Take 1 tablet by mouth once daily 30 tablet 5 07/15/2020 Active Additional Information Patient not taking.Reported on 04/10/2023 sotalol (BETAPACE) 120 MG tablet Take 1 tablet by mouth 2 times daily 180 tablet 3 09/01/2020 Active Additional Information Patient not taking.Reported on 12/05/2023 cyclobenzaprine (FLEXERIL) 10 MG tablet Take 10 mg by mouth Active losartan (COZAAR) 25 MG tablet 07/15/2021 Active predniSONE (DELTASONE) 5 MG tablet Take 5 mg by mouth once daily 12/13/2021 Active ibuprofen (MOTRIN) 200 MG tablet Take 2 (two) tablets by mouth as needed Active HYDROcodone-aceta minophen (NORCO) 5-325 MG tablet 02/01/2021 Active dilTIAZem coated beads 24hr (CARDIZEM CD) 120 MG capsule Take 1 capsule by mouth once daily 02/14/2022 Active clonazePAM, disintegrating, (KLONOPIN WAFER) 0.25 MG tablet Take 1 (one) tablet by mouth 2 times daily as needed 12/14/2021 Active amitriptyline (ELAVIL) 10 MG tablet TAKE 1 TABLET BY MOUTH EVERY DAY AT NIGHT 10/06/2021 Active albuterol HFA (Proventil; Ventolin; Proair) 108 (90 Base) MCG/ACT inhaler Inhale 2 (two) puffs by mouth every 4 hours as needed 11/17/2023 Active clonazePAM (KlonoPIN) 0.5 MG tablet Take 1 (one) tablet by mouth as needed 10/10/2023 Active dilTIAZem SR 24hr (Dilacor XR) 240 MG capsule Take 1 (one) capsule by mouth once daily 12/01/2023 Active DULoxetine (Cymbalta) 60 MG capsule Take 1 (one) capsule by mouth once daily 11/06/2023 Active fluticasone propionate (Flonase) 50 MCG/ACT nasal spray Bradford 1 (one) spray to 2 (two) sprays into the nose as needed 11/16/2023 Active losartan (Cozaar) 50 MG tablet Take 1 (one) tablet by mouth once daily 11/30/2023 Active omeprazole EC (PriLOSEC OTC) 20 MG tablet Take 1 (one) tablet by mouth 2 times daily, before breakfast and supper for 30 days 60 tablet 3 12/05/2023 Active sildenafil (Viagra) 100 MG tablet 1/2-1 tab on an empty stomach as needed before sexual activity 30 tablet 2 09/16/2024 Active tamsulosin (Flomax) 0.4 MG capsule Take 1 (one) capsule by mouth once daily At the same time every day after a meal. 90 capsule 3 09/16/2024 Active benzonatate (Tessalon) 200 MG capsule Take 1 (one) capsule by mouth 3 times daily 10/16/2024 Active cefdinir (Omnicef) 300 MG capsule Take 1 (one) capsule by mouth 2 times daily 10/16/2024 Active fluconazole (Diflucan) 150 MG tablet Take 1 (one) tablet by mouth once daily for 14 days 14 tablet 10/20/2024 11/03/2024 Active Active Problems Problem Noted Date Diagnosed Date MICKY (obstructive sleep apnea) 12/05/2023 Tonsillar hypertrophy 12/05/2023 Nasal septal deviation 12/05/2023 Nasal turbinate hypertrophy 12/05/2023 Perennial allergic rhinitis 12/05/2023 Sensorineural hearing loss (SNHL) of both ears 0 12/05/2023 Gastroesophageal reflux dise ase with esophagitis without hemorrhage 12/05/2023 Diverticulosis 12/07/2020 External hemorrhoids 12/07/2020 PAF (paroxysmal atrial fibrillation) 05/09/2020 Overview (09/01/2020): 04/2020 - New AFib diagnosis, symptomatic, admitted to [facility]. Cardioversion to sinus rhythm. 06/2020 - Readmitted for rapid, symptomatic AF. Sotalol started. Cardioversion to sinus. Hypercholesteremia 11/19/2016 Anxiety disorder 11/19/2016 Precordial pain 11/19/2016 Overview (03/25/2018): Chest pain syndrome with a negative cardiac catheterization in 2009, showing only angiographic plaquing and mild ectasia Stress Echo 02/2018 - EF 70%. Walked 10 min (138% predicted METs). Clinically/EKG/echo neg. + HTN Essential hypertension 11/19/2016 Overview (05/09/2020): Echo 06/2013 -- Moderate to severe asymmetric septal hypertrophy with mild to moderate concentric hypertrophy Echo 04/2020 - Mild isolated asymmetric basal hypertrophy w/ overall normal LV mass. Chordal RADHA only with no intra-LV or LVOT gradient. LVEF 60-65%. Normal chamber sizes. RVSP not calculable but likely normal. Symptomatic PVCs 06/09/2013 Overview (11/19/2016): Event monitor 06/2013 -- Baseline sinus lorenzo. Symptoms of skipping beats correlated w/ sinus w/ PVCs. PACs less frequent. Resolved Problems Problem Noted Date Diagnosed Date Resolved Date Thrush 12/05/2023 01/02/2024 Heart disease 07/24/2013 11/19/2016 [facility]pert[facility] failure 07/07/2013 05/09/2020 Immunizations Name Administration Dates Next Due Covid Moderna primary monova lent 12+ yr 0.5mL 08/31/2021,12/19/2020,11/03/2020 HEP A VACCINE, ADULT 03/31/2013 PNEUMOCOCCAL PPSV23 07/21/2020 Social History Tobacco Use Types Packs/Day Years [...] Comments Blood Pressure 131/84 10/20/2024 9:19 AM EMS EDUCATOR Pulse 80 10/20/2024 9:19 AM EMS EDUCATOR Temperature 37.1 ??C (98.7 ??F) 09/16/2024 4:16 PM CS T Respiratory Rate 18 02/16/2022 3:34 PM CDT Oxygen Saturation 98% 09/16/2024 4:16 PM EMS EDUCATOR Inhaled Oxygen Concentration - - Weight 105.7 kg (233 lb) 10/20/2024 9:19 AM EMS EDUCATOR Height 182.9 cm (6') 10/20/2024 9:19 AM EMS EDUCATOR Body Mass Index 31.6 10/20/2024 9:19 AM EMS EDUCATOR Plan of Treatment Upcoming Encounters Date Type Department Care Team (Late st Contact Info) Description 11/10/2024 1:45 PM EMS EDUCATOR Office Visit [facility] - ENT [address] [place] [phone] Surya Martinez MD [address] [place] [address] [place] [address] 02/17/2025 9:30 AM CDT Testing Visit [facility]NT [address] [place] [phone] Carlos Allen, PhD [address] [place] [address] [place] [address] 02/17/2025 10:15 AM CDT Office Visit [facility] - ENT [address] [place] [phone] Surya Santiago MD [address] [place], [place] [address] [address] Procedures Procedure Name Priority Date/Time Associated Diagnosis Comments AK LARYNGOSCOPY,FLEX FIBER,DIAGNOSTIC Routine 10/20/2024 5:16 PM EMS EDUCATOR MICKY (obstructive sleep apnea) Perennial allergic rhinitis Sensorineural hearing loss (SNHL) of both ears Gastroesophageal reflux disease with esophagitis without hemorrhage Thrush URINALYSIS W/MICROSCOPIC NO CULTURE Routine 09/16/2024 4:40 PM EMS EDUCATOR Lower urinary tract symptoms (LUTS) URINALYSIS AUTO - POINT OF CARE (AMB) [facility] Routine 09/16/2024 4:25 PM EMS EDUCATOR Lower urinary tract symptoms (LUTS) AK MSR PVR U&/BLADD CAPCTY US NON Routine 09/16/2024 4:24 PM EMS EDUCATOR Lower urinary tract symptoms (LUTS) BASIC METABOLIC PANEL (CALCIUM TOTAL) Routine 08/11/2020 3:19 PM EMS EDUCATOR Essential hypertension from Last 3 Months or Most Recently Relevant to Health Maintenance Results * AK LARYNGOSCOPY,FLEX FIBER,DIAGNOSTIC (10/20/2024 5:16 PM EMS EDUCATOR) Narrative Surya Martinez MD - 10/20/2024 5:16 PM EMS EDUCATOR Surya Martinez MD ? 10/20/2024 ??5:20 PM Procedure Note Anesthesia: Lidocaine 2% and Pola-Synephrine 1/2% Endoscopy Type: ??Flexible Kmyox-Dsrlgosejxesuu-Dtpipmzinymq Procedure Details: Informed consent was obtained. ??The [...] URINALYSIS W/MICROSCOPIC NO CULTURE (09/16/2024 4:40 PM EMS EDUCATOR) Color UA Yellow Straw, Yellow 09/16/2024 5:03 PM [facility] Clarity UA Clear Clear 09/16/2024 5:03 PM [facility] Specific [place] UA 1.016 1.005 - 1.030 09/16/2024 5:03 PM [facility] pH UA 5.0 5.0 - 8.0 pH 09/16/2024 5:03 PM [facility] Protein UA Negative Negative 09/16/2024 5:03 PM [facility] Glucose UA Negative Negative 09/16/2024 5:03 PM [facility] Ketone UA Negative Negative 09/16/2024 5:03 PM [facility] Bilirubin UA Negative Negative 09/16/2024 5:03 PM [facility] Blood UA 1+(A) Negative 09/16/2024 5:03 PM [facility] Nitrite UA Negative Negative 09/16/2024 5:03 PM [facility] Leukocyte Esterase Negative Negative 09/16/2024 5:03 PM [facility] Urobilinogen UA Negative Negative mg/dL 09/16/2024 5:03 PM [facility] RBC UA 0-2 None Seen, 0-2, 3-5 /HPF 09/16/2024 5:03 PM [facility] WBC UA 0-5 None Seen, 0-5 /HPF 09/16/2024 5:03 PM [facility] Squamous Epithelial Cells UA None Seen None Seen, 0-2, 3-5 /HPF 09/16/2024 5:03 PM [facility] Urine URINE SPECIMEN OBTAINED BY CLEAN CATCH PROCEDURE / Unknown Collection / Unknown 09/16/2024 4:40 PM EMS EDUCATOR 09/16/2024 4:51 PM [facility] - 09/16/2024 5:03 PM EMS EDUCATOR Jose Martin Weinstein MD LAB - URINALYSIS O RDERABLES [facility] [address] [place] [address], [place] [phone] * URINALYSIS AUTO - POINT OF CARE (AMB) [facility] (09/16/2024 4:25 PM EMS EDUCATOR) Glucose UA neg [facility] [address] Bilirubin UA POCT neg [facility] [address] Ketones UA POCT neg [facility] [address] Specific [place] UA 1.[address] [facility] [address] Blood Urine POCT +- 10Ery/uL [facility] [address] pH UA 6.[address] [facility] [address] Protein UA neg [facility] [address] Urobilinogen UA neg 0.2mg/dL [facility] [address] Nitrite UA neg [facility] [address] WBC UA neg [facility] [address] Urine URINE / Unknown 09/16/2024 4 :25 PM EMS EDUCATOR Jose Martin Weinstein MD LAB - POINT OF CAR E ORDERABLES [facility] [address] [place] [address], [place] [phone] * AK MSR PVR U&/BLADD CAPCTY US NON (09/16/2024 4:24 PM EMS EDUCATOR) Narrative Nikita Garcia MA - 09/16/2024 4:24 PM EMS EDUCATOR Nikita Garcia MA ? 09/16/2024 ??4:43 PM PVR=39mL Jose Martin Weinstein MD PROCEDURE/MINOR MOTLEY RGICAL ORDERABLES * (ABNORMAL) BASIC METABOLIC PANEL (BMP) (08/11/2020 3:19 PM EMS EDUCATOR) Glucose 110(H) 65 - 99 mg/dL [facility] [...] BLOOD SPECIMEN / Unknown 08/11/2020 3:19 PM EMS EDUCATOR 08/11/2020 Narrative Resulting Agency Comment Lab Testing performed at: [facility] [address] ??[facility] [phone] Mor Ku MD LAB - CHEMISTRY YARON RAGSDALE [facility] INSURANCE BILL [address] [place] [address] from Last 3 Months or Most Recently Relevant to Health Maintenance Care Teams Powdered Metal Supervisor Relationship Specialty Start Date End Date Ronal Matson APRN-LOG INSPECTOR [address] [phone] PCP - General Nurse Practitioner 03/24/18
--- OUTSIDE RECORDS SUMMARY | 2024-10-22 11:28 | XMS_ITS | Encounter Summary ---
Author Organization [facility] Health Address [address] [facility] [place] [address] Care Team Providers Care Medical Record Specialist Name Role Phone HuyenRonal GEOVANY-SUPER[employer]ENT [employer] Primary Care Provider [phone] Encounter Details Date Type Department Care Team (Late st Contact Info) Description 07/07/2024 Telephone [facility] [address] [place] [address] Jose Martin Weinstein MD [address] [place] [address] Social History Tobacco Use Types Packs/Day Years Used Date Smoking Tobacco: Former Smokeless Tobacco: Former Alcohol Use Standard Drinks/Week Comments Not Currently 15 (1 standard drink = 0.6 oz pu re alcohol) Sex and Gender Information Value Date Recorded Sex Assigned at Not on file Gender Identity Not on file Sexual Orientation Not on file documented as of this encounter Miscellaneous Notes * Telephone Encounter - Jasmyn Anderson - 07/07/2024 2:01 PM CDT Patient called in requesting a Med refill. Drug type:sildenafil 100 mg and flomax 0.4 mg Patient Pharmacy:[facility] Patient call back number: [phone] . Patients MEHNAZ : 04/10/23 Upcoming appointment scheduled for : 09/16 documented in this encounter Plan of Treatment Upcoming Encounters Date Type Department Care Team (Late st Contact Info) Description 11/10/2024 1:45 PM MINUTE CLERK FOR BASIC TRAFFIC Office Visit [facility] [address] [place] [phone] Surya Martinez MD [address] [place] [address] [place] [address] 02/17/2025 9:30 AM CDT Testing Visit [facility] - ENT [address] [place] [phone] Carlos Allen, PhD [address] [place] [address] [place] [address] 02/17/2025 10:15 AM CDT [facility] [address] [place] [phone] Surya Santiago MD [address] [place] [address] [place] [address] documented as of this encounter Visit Diagnoses Not on filedocumented in this encounter Care Teams Medical Record Specialist Relationship Specialty Start Date End Date Ronal Matson APRN-SUPERINT[employer]ENT [employer] [address] [phone] PCP - General Nurse Practitioner 03/24/18 documented as of this encounter
--- OUTSIDE RECORDS SUMMARY | 2024-10-22 11:28 | XMS_ITS | Clinical Summary ---
Author Organization [facility] Address [address], [address] [address] Phone Care Team Providers Care Die Forger Name Role Phone Sterling, Bernardacarlitos ARMENTA CNP Primary Care Provider [phone] Medications losartan (COZAAR) 50 MG Tablet 3 Active sotalol (BETAPACE) 120 MG Tablet Take 120 mg by mouth 2 times daily. 4 Active dilTIAZem (DILACOR XR) 240 MG CAPSULE SR 24 HR Take by mouth daily. 3 Active DULoxetine (CYMBALTA) [address] Particles Active atorvastatin (LIPITOR) 40 MG Tablet Take 40 mg by mouth daily. Active fluticasone (FLONASE) 50 MCG/ACT Suspension 1-2 Sprays by Nasal route daily. Use in each nostril as directed. 16 g 4 Active albuterol 108 (90 Base) MCG/ACT Aerosol SolutionIndicat ions:Subacute cough take 2 Puffs by inhalation every 4 hours as needed for Cough. 6.7 g 4 Active Social History Tobacco Use Types Packs/Day Years Used Date Smoking Tobacco: Never Smokeless Tobacco: Never Tobacco Cessation:Counseling Given: Not Answered Sex and Gender Information Value Date Recorded Sex Assigned at Not on file Legal Sex Male 9:41 AM CHEF INSTRUCTOR Gender Identity Not on file Sexual Orientation Not on file Last Filed Vital Signs Vital Sign Reading Time Taken Comments Blood Pressure 150/91 11/16/2023 5:34 PM CHEF INSTRUCTOR Pulse 68 11/16/2023 5:34 PM CHEF INSTRUCTOR Temperature 36.7 ??C (98 ??F) 11/16/2023 5:34 PM CHEF INSTRUCTOR Respiratory Rate 18 11/16/2023 5:34 PM CHEF INSTRUCTOR Oxygen Saturation 97% 11/16/2023 5:34 PM CHEF INSTRUCTOR Inhaled Oxygen Concentration - - Weight 104.3 kg (230 lb) 11/16/2023 5:34 PM CHEF INSTRUCTOR Height 180.3 cm (5' 11 ) 11/16/2023 5:34 PM CHEF INSTRUCTOR Body Mass Index 32.08 11/16/2023 5:34 PM CHEF INSTRUCTOR Plan of Treatment Health Maintenance Due Date Last Done Comments Hepatitis C Virus (HCV) Screening 1961 TdaP Immunization 1961 Colonoscopy 2006 Colorectal Cancer Screening 2006 Cologuard 2011 Immunochemical Fecal Occult Blood 2011 Zoster Immunization (1 of 2) 2011 PSA Discussion 2016 Pneumococcal Immunization (5 0+ years) (2 of 2 - PCV) 07/21/2021 07/21/2020 Influenza Immunization (#1) 2024 SARS-COV-2 Immunization ( season) 2024 08/31/2021, 12/19/2020, 11/03/2020 Respiratory Syncytial Virus (RSV) Immunization (Adult) (1 - 1-dose 75+ series) 2036 Pneumococcal Immunization Combined Discontinued 07/21/2020 Hepatitis B Immunization Aged Out No longer eligible based on patient's age to complete this topic Meningococcal Immunization (ACWY) Aged Out No longer eligible based on patient's age to complete this topic Rotavirus Immunization Aged Out No lo nger eligible based on patient's age to complete this topic Insurance [facility] Care Teams Die Forger Relationship Specialty Start Date End Date Sterling, GEOVANY Menchaca, ANTONY [address] [place] [address] PCP - General Family Medicine 11/07/18
--- OUTSIDE RECORDS SUMMARY | 2024-10-22 11:28 | XMS_ITS | Clinical Summary ---
Author Organization [facility] Address [address] [facility] [place] [address] [place] [address] Care Team Providers Care Shop Worker Name Role Phone Pina Song FARM LABORER Primary Care Provider [phone] Allergies Active Allergy Reactions Criticality Noted Date Comments Dronedarone Rash Low 04/09/2022 Medications atorvastatin 20 MG tabletIndications :Hyperlipidemia Take 20 mg by mouth daily. Indications: High Amount of Fats in the Blood Active cyclobenzaprine 10 MG tablet Take 10 mg by mouth 3 (three) times daily as needed for Muscle Spasms. Active DULoxetine 60 MG capsuleIndication s:Depression Take 60 mg by mouth daily. Indications: Depression Active ibuprofen 600 MG tablet Take 600 mg by mouth every 6 (six) hours as needed for Pain. Active omeprazole 20 MG capsuleIndication s:Gastroesophagea l Reflux Disease Take 20 mg by mouth daily. Indications: Gastroesophageal Reflux Disease Active trazodone 50 MG tabletIndications :sleep Take 50 mg by mouth nightly as needed. Indications: sleep Active vitamin D3, cholecalciferol, 1000 UNIT Tab tabletIndications :supplement Take 1 tablet by mouth daily. Indications: supplement Active clonazePAM 0.25 MG disintegrating tablet 03/22/20 22 Active dilTIAZem (CARDIZEM) 60 MG tablet Take 30 mg by mouth 4 (four) times daily. Active sotalol (BETAPACE) 120 MG tablet Take 120 mg by mouth 2 (two) times daily. Active losartan (COZAAR) 25 MG tablet Take 25 mg by mouth daily. Active Active Problems Problem Noted Date Diagnosed Date Cervical radiculopathy 07/07/2019 Post-operative state 07/06/2019 Immunizations Name Administration Dates Next Due MODERNA COVID-19 (12+) MRNA, LNP-S, PF, 100 MCG/ 0.5 ML DOSE 08/31/2021,12/19/2020,11/03/2020 Family History Medical History Relation Comments Hypertension Father back problems Father Heart Disease Mother Hypertension Mother back problems Mother Relation Status Comments Father Alive Mother Alive Social History Tobacco Use Types Packs/Day Years Used Date Smoking Tobacco: Former Smokeless Tobacco: Former Tobacco Cessation:Counseling Given: Not Answered Comments:quit Alcohol Use Standard Drinks/Week Comments Yes 0 (1 standard drink = 0.6 oz pur e alcohol) socially Sex and Gender Information Value Date Recorded Sex Assigned at Not on file Legal Sex Male 4:52 PM CDT Gender Identity Not on file Sexual Orientation Not on file Last Filed Vital Signs Vital Sign Reading Time Taken Comments Blood Pressure 125/75 04/13/2022 2:39 PM CDT Pulse 66 04/13/2022 2:39 PM CDT Temperature 36.2 ??C (97.1 ??F) 04/13/2022 2:39 PM CD T Respiratory Rate 18 04/13/2022 2:39 PM CDT Oxygen Saturation 100% 04/13/2022 2:39 PM CDT Inhaled Oxygen Concentration - - Weight 102.1 kg (225 lb) 10/19/2022 10:25 AM CLINICAL LAB SPECIALIST Height 182.9 cm (6') 10/19/2022 10:25 AM CLINICAL LAB SPECIALIST Body Mass Index 30.52 10/19/2022 10:25 AM CLINICAL LAB SPECIALIST Plan of Treatment Health Maintenance Due Date Last Done Comments Colorectal Cancer Screening Colonoscopy (10 Years) 1961 Annual Physical 1964 Hepatitis C 1979 DTaP, Tdap and Td Vaccines ( 1 - Tdap) 1980 Zoster Vaccines (1 of 2) 2011 COVID-19 Vaccine (4 2023-2 5 season) 2024 08/31/2021, 12/19/2020, 11/03/2020 Influenza Adult (#1) 2024 RSV Immunization or 60+ Years (1 - 1-dose 75+ series) 2036 Meningococcal B Vaccine Aged Out No l onger eligible based on patient's age to complete this topic Meningococcal Vaccine Aged Out No cristino boyd eligible based on patient's age to complete this topic Pneumococcal Vaccine: Pediatrics (0 to 5 Years) and At-Risk Patients (6 to 64 Years) Aged Out No longer eligible b ased on patient's age to complete this topic RSV Immunizations Under 20 Months Aged Out No longer eligible b ased on patient's age to complete this topic Medical Devices Implanted Type Area Gear Changer Device Identifier Shelf Expiration Date Model / Serial / Lot Screw Constrained Depuy 16mm - [id number] Implanted:Qty: 4 on 07/06/2019 by Ronal Marley MD at [facility] N/A: Spine Cervical [employer] [id number] / / NA [place] Plate Implanted:Qty: 1 on 07/06/2019 by Ronal Marley MD at [facility] N/A: Spine Cervical [employer] 1868-01-012 / / NA Graft Lifenet Vg2 Cervical T68p 6.75 X 8.22mm Implanted:Qty: 1 on 07/06/2019 by Ronal Marley MD at [facility] N/A: Spine Cervical [employer] 07/29/2023 [id number] / / [id number] Description:Bone graft Explanted Type Area Gear Changer Device Identifier Shelf Expiration Date Model / Serial / Lot Drill Bit 12mm Explanted:Qty: 1 on 07/06/2019 by Ronal Marley MD at [facility] N/A: Spine Cervical DE[employer] [id number] / / NA Pin Distraction Medline 12mm - [id number] Explanted:Qty: 2 on 07/06/2019 at [facility] N/A: Spine Cervical [employer] [id number] / / NA Insurance [facility] Advance Directives * Full Code (Latest Code Status on File) Date Activated Date Inactivated Comments 07/06/2019 3:46 PM 07/07/2019 10:53 AM Care Teams Shop Worker Relationship Specialty Start Date End Date Pina Song NP [address] [place] [address] PCP - General NURSE PRACTITIONER 04/13/22
--- OUTSIDE RECORDS SUMMARY | 2024-10-22 11:28 | XMS_ITS | Clinical Summary ---
Author Organization [facility] Address [address] [place] [address] Care Team Providers Care Mule Driver Name Role Phone HuyenRonal GEOVANY-ANTONY Primary Care Provider [phone]- [phone] Source Comments [facility],non-owned Affiliates and Associated Physician Practices is amultiple site organization consisting of ambulatory clinics and hospital sitesin [place], [place], [place] and [place]. This disclosure is being madepursuant to the Care Everywhere program and may not contain all information available regarding this patient. Last updated 18.[facility] Allergies Active Allergy Reactions Criticality Noted Date [...] fluticasone propionate (Flonase) 50 MCG/ACT nasal spray Waves 1 (one) spray to 2 (two) sprays [...] - New AFib diagnosis, symptomatic, admitted to [facility]. Cardioversion to sinus rhythm. 06/2020 - Readmitted [...] disease 07/24/2013 11/19/2016 Hypertensive heart disease w ithout heart failure 07/07/2013 05/09/2020 Encounters Date Type Department Care Team Description 10/20/2024 9:15 AM SUSTAINMENT LOGISTICS ANALYST Office Visit [facility] [address] [place] [address] Surya Martinez MD MICKY (obstructive sleep apnea) (Primary Dx); Perennial allergic rhinitis; Sensorineural hearing loss (SNHL) of both ears; Gastroesophageal reflux disease with esophagitis without hemorrhage; Thrush 10/20/2024 Travel 10/15/2024 Travel 09/16/2024 4:50 PM SUSTAINMENT LOGISTICS ANALYST - 09/16/2024 11:59 PM SUSTAINMENT LOGISTICS ANALYST Hospital Encounter [facility] [address] [place] [address] Discharge Disposition: Home or Self Care 09/16/2024 4:00 PM SUSTAINMENT LOGISTICS ANALYST Office Visit [facility] - Urology [address] [place] [phone] Jose Martin Weinstein MD Lower urinary tract symptoms (LUTS) (Primary Dx) 09/10/2024 Orders Only [facility] [address] [place] [phone] Karlee Rivas LPN History of BPH from Last 3 Months Immunizations Name Administration Dates Next Due Covid Moderna primary monova lent 12+ yr 0.5mL 08/31/2021,12/19/2020,11/03/2020 HEP A VACCINE, ADULT 03/31/2013 PNEUMOCOCCAL PPSV23 07/21/2020 Family History Medical History Relation Name Comments [...] Comments Blood Pressure 131/84 10/20/2024 9:19 AM SUSTAINMENT LOGISTICS ANALYST Pulse 80 10/20/2024 9:19 AM SUSTAINMENT LOGISTICS ANALYST Temperature 37.1 ??C (98.7 ??F) 09/16/2024 4:16 PM CS T Respiratory Rate 18 02/16/2022 3:34 PM CDT Oxygen Saturation 98% 09/16/2024 4:16 PM SUSTAINMENT LOGISTICS ANALYST Inhaled Oxygen Concentration - - Weight 105.7 kg (233 lb) 10/20/2024 9:19 AM SUSTAINMENT LOGISTICS ANALYST Height 182.9 cm (6') 10/20/2024 9:19 AM SUSTAINMENT LOGISTICS ANALYST Body Mass Index 31.6 10/20/2024 9:19 AM SUSTAINMENT LOGISTICS ANALYST Plan of Treatment Upcoming Encounters Date Type Department Care Team (Late st Contact Info) Description 11/10/2024 1:45 PM SUSTAINMENT LOGISTICS ANALYST Office Visit [facility] ENT [address] [place] [phone] Surya Martinez MD [address] [place] [address] [place] [address] 02/17/2025 9:30 AM CDT Testing Visit [facility] [address] [place] [phone] Carlos Allen, PhD [address] [place] [address] [place] [address] 02/17/2025 10:15 AM CDT Office Visit [facility] [address] [place] [phone] Surya Santiago MD [address] [place] [address] [place] [address] Health Maintenance Due Date Last Done Comments COLOGUARD (AGES 45-75) - COL ON CA SCREENING [address] COLONOGRAPHY - COLON CA SCREENING 1960 FIT - COLON CA SCREENING 1960 FLEX SIG - COLON CA SCREENING 1960 HIV SCREENING 1976 HEPATITIS C SCREENING 05/24/1979 DTAP/TDAP/TD VACCINES (1 - Tdap) 1980 ZOSTER VACCINE (1 of 2) 2011 PNEUMOCOCCAL VACCINE 50+ (2 of 2 - PCV) 07/21/2021 07/21/2020 SCREENING FOR DIABETES 08/11/2023 08/11/2020 COVID-19 VACCINE (4 - 2023-2 5 season) 2024 08/31/2021, 12/19/2020, 11/03/2020 INFLUENZA VACCINE (#1) 2024 DEPRESSION SCREENING 09/30/2024 COLONOSCOPY - COLON CA SCREENING 09/13/2030 09/13/2020 Colorectal Cancer Screening 09/13/2030 Respiratory Syncytial Virus (RSV) Vaccine Pt: or over 60 yrs (1 - 1-dose 75+ series) 2036 HEPATITIS B VACCINE Aged Out No longe r eligible based on patient's age to complete this topic HIB VACCINE Aged Out No longer eligi ble based on patient's age to complete this topic HPV VACCINE Aged Out No longer eligi ble based on patient's age to complete this topic MENINGOCOCCAL (Group B) VACCINE Aged Out No longer eligible b ased on patient's age to complete this topic MENINGOCOCCAL VACCINE Aged Out No cristino boyd eligible based on patient's age to complete this topic Procedures Procedure Name Priority Date/Time Associated Diagnosis Comments SD LARYNGOSCOPY,FLEX FIBER,DIAGNOSTIC Routine 10/20/2024 5:16 PM SUSTAINMENT LOGISTICS ANALYST MICKY (obstructive sleep apnea) Perennial allergic rhinitis Sensorineural hearing loss (SNHL) of both ears Gastroesophageal reflux disease with esophagitis without hemorrhage Thrush URINALYSIS W/MICROSCOPIC NO CULTURE Routine 09/16/2024 4:40 PM SUSTAINMENT LOGISTICS ANALYST Lower urinary tract symptoms (LUTS) URINALYSIS AUTO - POINT OF CARE (AMB) [facility] Routine 09/16/2024 4:25 PM SUSTAINMENT LOGISTICS ANALYST Lower urinary tract symptoms (LUTS) SD MSR PVR U&/BLADD CAPCTY US NON Routine 09/16/2024 4:24 PM SUSTAINMENT LOGISTICS ANALYST Lower urinary tract symptoms (LUTS) BASIC METABOLIC PANEL (CALCIUM TOTAL) Routine 08/11/2020 3:19 PM SUSTAINMENT LOGISTICS ANALYST Essential hypertension from Last 3 Months or Most Recently Relevant to Health Maintenance Results * SD LARYNGOSCOPY,FLEX FIBER,DIAGNOSTIC (10/20/2024 5:16 PM SUSTAINMENT LOGISTICS ANALYST) Narrative Surya Martinez MD - 10/20/2024 5:16 PM SUSTAINMENT LOGISTICS ANALYST Surya Martinez MD ? 10/20/2024 ??5:20 PM Procedure Note Anesthesia: Lidocaine 2% and Pola-Synephrine 1/2% Endoscopy Type: ??Flexible Xpjpz-Zflylqmsnmiqpz-Yqbqadiqwjap Procedure Details: Informed consent was obtained. ??The [...] URINALYSIS W/MICROSCOPIC NO CULTURE (09/16/2024 4:40 PM SUSTAINMENT LOGISTICS ANALYST) Color UA Yellow Straw, Yellow 09/16/2024 5:03 PM SUSTAINMENT LOGISTICS ANALYST [facility] Clarity UA Clear Clear 09/16/2024 5:03 PM [facility] Specific [place] UA 1.016 1.005 - 1.030 09/16/2024 5:03 PM [facility] pH UA 5.0 5.0 - 8.0 pH 09/16/2024 5:03 PM [facility] Protein UA Negative Negative 09/16/2024 5:03 PM [facility] Glucose UA Negative Negative 09/16/2024 5:03 PM [facility] Ketone UA Negative Negative 09/16/2024 5:03 PM [facility] Bilirubin UA Negative Negative 09/16/2024 5:03 PM [facility] Blood UA 1+(A) Negative 09/16/2024 5:03 PM [facility] Nitrite UA Negative Negative 09/16/2024 5:03 PM [facility] Leukocyte Esterase Negative Negative 09/16/2024 5:03 PM [facility] Urobilinogen UA Negative Negative mg/dL 09/16/2024 5:03 PM [facility] RBC UA 0-2 None Seen, 0-2, 3-5 /HPF 09/16/2024 5:03 PM [facility] WBC UA 0-5 None Seen, 0-5 /HPF 09/16/2024 5:03 PM [facility] Squamous Epithelial Cells UA None Seen None Seen, 0-2, 3-5 /HPF 09/16/2024 5:03 PM [facility] Urine URINE SPECIMEN OBTAINED BY CLEAN CATCH PROCEDURE / Unknown Collection / Unknown 09/16/2024 4:40 PM SUSTAINMENT LOGISTICS ANALYST 09/16/2024 4:51 PM SUSTAINMENT LOGISTICS ANALYST [facility] - 09/16/2024 5:03 PM SUSTAINMENT LOGISTICS ANALYST Jose Martin Weinstein MD LAB - URINALYSIS O RDERABLES [facility] [address] [place] [address], [facility] [phone] * URINALYSIS AUTO - POINT OF CARE (AMB) [facility] (09/16/2024 4:25 PM SUSTAINMENT LOGISTICS ANALYST) Glucose UA neg [facility] [address] Bilirubin UA POCT neg [facility] [address] Ketones UA POCT neg [facility] [address] Specific [place] UA 1.[address] [facility] [address] Blood Urine POCT +- 10Ery/uL [facility] [address] pH UA 6.[address] [facility] [address] Protein UA neg [facility] [address] Urobilinogen UA neg 0.2mg/dL [facility] [address] Nitrite UA neg [facility] [address] WBC UA neg [facility] [address] Urine URINE / Unknown 09/16/2024 4 :25 PM SUSTAINMENT LOGISTICS ANALYST Jose Martin Weinstein MD LAB - POINT OF CAR E ORDERABLES [facility] [address] [place] [address], [facility] [phone] * SD MSR PVR U&/BLADD CAPCTY US NON (09/16/2024 4:24 PM SUSTAINMENT LOGISTICS ANALYST) Narrative Nikita Garcia MA - 09/16/2024 4:24 PM SUSTAINMENT LOGISTICS ANALYST Nikita Garcia MA ? 09/16/2024 ??4:43 PM PVR=39mL Jose Martin Weinstein MD PROCEDURE/MINOR MOTLEY RGICAL ORDERABLES * (ABNORMAL) BASIC METABOLIC PANEL (BMP) (08/11/2020 3:19 PM SUSTAINMENT LOGISTICS ANALYST) Glucose 110(H) 65 - 99 mg/dL [facility] [...] BLOOD SPECIMEN / Unknown 08/11/2020 3:19 PM SUSTAINMENT LOGISTICS ANALYST 08/11/2020 Narrative Resulting Agency Comment Lab Testing performed at: [facility] [address] [facility] ??[facility] [id number] Mor Ku MD LAB - CHEMISTRY YARON RAGSDALE [facility] INSURANCE BILL [address] [place] [address] from Last 3 Months or Most Recently Relevant to Health Maintenance Care Teams Mule Driver Relationship Specialty Start Date End Date Ronal Matson APRN-ANTONY [address] [address] PCP - General Nurse Practitioner 03/24/18
--- OUTSIDE RECORDS SUMMARY | 2024-10-22 11:29 | XMS_ITS | Referral Summary ---
Author Organization [facility] Address [address] [place] [address] Care Team Providers Care Plastics Repairer Name Role Phone Pina Song NP Primary Care Provider Allergies Active Allergy Reactions Criticality Noted Date Comments Dronedarone Rash Medium 08/05/2020 Medications quinapriL (ACCUPRIL) 20 mg tabletIndications:h ypertension Take 1 tablet by mouth 2 times daily In am and jona for bp Active omeprazole (PriLOSEC) 20 mg capsuleIndications: Treatment of Non-Bleeding Gastric Disorder Take 1 capsule by mouth every morning reflux 5 8 Active atorvastatin (LIPITOR) 20 mg tabletIndications:h yperlipidemia Take 20 mg by mouth every morning 0 8 Active amLODIPine (NORVASC) 5 mg tabletIndications:h ypertension Take 5 mg by mouth 2 (two) times a day 8 Active sotaloL (BETAPACE) 120 mg tabletIndications:P revention of Recurrent Atrial Fibrillation Take 120 mg by mouth 2 (two) times a day 0 Active ibuprofen (ADVIL,MOTRIN) 200 mg tab/cap Take 400 mg by mouth as needed for pain Active chlorthalidone 25 mg tabletIndications:h ypertension Take 25 mg by mouth every morning 1 Active HYDROcodone-acetami nophen (NORCO) 5-325 mg per tabletIndications:P ain TAKE 1 TABLET EVERY 4-6 HOURS NEEDED FOR PAIN 20 tablet 1 Active Eliquis 5 mg tablet Take 5 mg by mouth 2 (two) times a day 1 Active dilTIAZem CD 120 mg 24 hr capsule 1 Active chlorhexidine (PERIDEX) 0.12 % solution 1 Active losartan (COZAAR) 25 mg tablet Take 25 mg by mouth daily 1 Active traMADoL (ULTRAM) 50 mg tablet TAKE 1 TABLET BY MOUTH EVERY 6 TO 8 HOURS NEEDED FOR PAIN [address] (CYMBALTA) 60 mg capsule Take by mouth daily 1 Active sildenafiL (VIAGRA) 100 mg tablet 1/2-1 tab on an empty stomach as needed before sexual activity 12 tablet 1 Active amitriptyline (ELAVIL) 10 mg tablet TAKE 1 TABLET BY MOUTH EVERY DAY AT NIGHT 30 tablet 1 Active methylPREDNISolone (MEDROL DOSEPACK) 4 mg Dosepack Take as directed on package 1 packet 2 Active tamsulosin (FLOMAX) 0.4 mg extended release capsule 1 Active clonazePAM (KlonoPIN) 0.25 mg disintegrating tablet 2 Active amoxicillin 500 mg capsule TAKE 2 CAPSULES BY MOUTH EVERY 8 HOURS FOR 5 DAYS 2 Active doxycycline 100 mg tablet Take 100 mg by mouth 2 (two) times a day 2 Active TiZANidine (ZANAFLEX) 2 mg capsule Take 1 capsule (2 mg total) by mouth 3 (three) times a day as needed for muscle spasms 30 capsule 1 2 Active dilTIAZem XR 240 mg 24 hr capsule Take by mouth daily 3 Active losartan (COZAAR) 50 mg tablet 3 Active Active Problems Problem Noted Date Diagnosed Date Acute medial meniscus tear of right knee 021 Overview (01/19/2021): Added automatically from request for surgery [id number] Cyst of knee joint, right 01/19/2021 Overview (01/19/2021): Added automatically from request for surgery [id number] External hemorrhoids 12/07/2020 Diverticulosis 12/07/2020 Sahu's esophagus without dysplasia 08/05/2020 PAF (paroxysmal atrial fibrillation) (CMS/HCC) 0 05/09/2020 Overview (12/29/2020): 04/2020 - New AFib diagnosis, symptomatic, admitted to [facility]. Cardioversion to sinus rhythm. 06/2020 - Readmitted for rapid, symptomatic AF. Sotalol started. Cardioversion to sinus. Post-operative state 07/06/2019 Ganglion cyst 07/16/2018 Overview (07/16/2018): Overview: Ganglion cyst removal Achilles tendinitis of right lower extremity Overview (03/20/2018): Added automatically from request for surgery [id number] Lumbosacral radiculopathy 12/10/2017 Arthritis of lumbosacral spine 12/10/2017 Pain of foot 10/11/2017 Encounter for screening colonoscopy 09/20/2017 Prostatitis 09/20/2017 Elbow pain 05/06/2017 Anxiety disorder 11/19/2016 Essential hypertension 11/19/2016 Hyperlipidemia 11/19/2016 Chest pain 11/19/2016 Overview (07/16/2018): Overview: Chest pain syndrome with a negative cardiac catheterization in 2009, showing only angiographic plaquing and mild ectasia Stress Echo 02/2018 - EF 70%. Walked 10 min (138% predicted METs). Clinically/EKG/echo neg. 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 thy 08/17/2014 Degeneration of intervertebral disc of lumbar re gion 02/13/2014 Overview (01/02/2017): DDD (degenerative disc disease), lumbar Coronary arteriosclerosis in burns paiute artery 02/13 Overview (01/03/2017): CRNRY ATHRSCL NATVE VSSL Pain in extremity 02/13/2014 Overview (01/03/2017): PAIN IN LIMB Olecranon bursitis 02/13/2014 Overview (01/04/2017): Bursitis of elbow Herniation of lumbar intervertebral disc without myelopathy 02/13/2014 Overview (01/04/2017): Lumbar Discogenic Pain Syndrome Asthma 02/13/2014 Overview (01/04/2017): ASTHMA NOS Anxiety state 02/13/2014 Overview (01/04/2017): ANXIETY STATE NOS Benign hypertension 02/13/2014 Overview (01/04/2017): BENIGN HYPERTENSION Diastolic dysfunction, left ventricle 07/24/2013 Benign hypertensive heart disease without heart failure 07/07/2013 Overview (07/16/2018): Overview: Echo 06/2013 -- Moderate to severe asymmetric septal hypertrophy with mild to moderate concentric hypertrophy Overview: Echo 06/2013 -- Moderate to severe asymmetric septal hypertrophy with mild to moderate concentric hypertrophy Symptomatic PVCs 06/09/2013 Overview (04/10/2018): Overview: Event monitor 06/2013 -- Baseline sinus lorenzo. Symptoms of skipping beats correlated w/ sinus w/ PVCs. PACs less frequent. Obesity 03/25/2013 Cervical pain (neck) 07/29/2012 Mechanical complication of i nternal orthopedic device, implant or graft 07/29/2012 Arthralgia of shoulder 03/28/2012 Surgical follow-up care 07/24/2011 Former smoker 02/01/2011 Cervical radiculopathy 07/13/2010 Herniation of intervertebral disc of cervical re gion 07/13/2010 Social History Tobacco Use Types Packs/Day Years Used Date Smoking Tobacco: Former Cigarettes 0.5 5 1 983 - 1987 Cigars Smokeless Tobacco: Former Quit: 03/21/2003 Alcohol Use Standard Drinks/Week Comments Not Currently 22 (1 standard drink = 0.6 oz pure alcohol) Used to be heavy beer drinker AUDIT-C Answer Date Recorded Q1: How often do you have a drink containing alc ohol? 2-3 times a week 02/01/2021 Q2: How many drinks containi ng alcohol do you have on a typical day when you are drinking? 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 Not on file Not on file Not on file Last Filed Vital Signs Vital Sign Reading Time Taken Comments Blood Pressure 129/86 02/21/2022 10:30 PM CDT Pulse 66 02/21/2022 10:30 PM CDT Temperature 37.2 ??C (98.9 ??F) 02/21/2022 7:27 PM CD T Respiratory Rate 16 02/21/2022 10:05 PM CDT Oxygen Saturation 95% 02/21/2022 10:30 PM CDT Inhaled Oxygen Concentration - - Weight 102.1 kg (225 lb) 04/26/2022 5:47 PM CDT Height 182.9 cm (6') 04/26/2022 5:47 PM CDT Body Mass Index 30.52 04/26/2022 5:47 PM CDT Plan of Treatment Not on file Medical Devices Implanted Type Area Meat Carrier Device Identifier Shelf Expiration Date Model / Serial / Lot [employer] [id number] Corkscrew Ii Fiberwire 5.5mm 16.3mm 2 2 Full Thread [place] Suture - [id number] Implanted:Qty: 2 on 05/30/2018 by Rajan Martin MD at [facility] Other - see comments Right: Calcaneus [employer] 06/29/2022 [id number] / / Description:Suture [place], C orkscrew FT II Plate N/A: Neck Procedures Procedure Name Priority Date/Time Associated Diagnosis Comments PSA SCREEN Routine 05/31/2022 12:38 PM CDT Prostate cancer screening COLONOSCOPY 09/13/2020 7:17 AM SENIOR ACCOUNTANT from Last 3 Months or Most Recently Relevant to Health Maintenance Results * PSA screen (05/31/2022 12:38 PM CDT) PSA 0.6 0.0 - 4.0 ng/mL [facility] - 01 Comment: Maria Esther ECLIA methodology. According to the [place] [employer], Serum PSA should decrease and remain at undetectable levels after radical prostatectomy. The AUA defines biochemical recurrence as an initial PSA value 0.2 ng/mL or greater followed by a subsequent confirmatory PSA value 0.2 ng/mL or greater. Values obtained with different assay methods or kits cannot be used interchangeably. Results cannot be interpreted as absolute evidence of the presence or absence of malignant disease. Blood specimen (specimen) 05/31/2022 12:38 PM CDT 05/31/2022 Narrative [facility] - 06/01/2022 8:15 AM CDT Performed at: ??01 - [address] ??[id number] Cloud Physicist: Jack Stokes PhD, Phone: ??[phone] Sis Hinds NP LAB BLOOD ORDERABLES Final Result [facility] - 01 * COLONOSCOPY (09/13/2020 7:17 AM SENIOR ACCOUNTANT) Anatomical Region Laterality Modality Other Narrative Procedure Note Israel Dotson MD - 09/13/2020 7:17 AM CST ENDOSCOPY LAB Patient Name: Huang Royal Procedure Date: 09/13/2020 7:17 AM Admit Type: Outpatient Room: [facility] Date of : 1960 Instrument Name: [id number] Gender: Male Note Status: Finalized Procedure: Colonoscopy Indications: Screening for colorectal malignant neoplasm Comorbidities No comorbidities Providers: Israel Dotson M.D. Referring MD: Pratima Mosquera Medicines: Propofol per Anesthesia Complications: No immediate complications. Estimated Blood Loss: Estimated blood loss: none. Procedure: Pre-Anesthesia Assessment: - Prior to the procedure, a History and Physical was performed, and patient medications and allergies were reviewed. The patient's tolerance of previousanesthesia was also reviewed. The risks and benefits of theprocedure and the sedation options and risks were discussed withthe patient. All questions were answered, and informedconsent was obtained. Prior Anticoagulants: The patient hastaken no previous anticoagulant or antiplatelet agents. ASA Grade Assessment: II - A patient with mild systemic disease. After reviewing the risks and benefits, the patient was deemed in satisfactory condition to undergo the procedure. - The risks and benefits of the procedure and thesedation options and risks were discussed with the patient. All questions were answered and informed consent wasobtained. The benefits, risks and alternatives of the procedureand sedation were discussed and informed consent wasobtained. All questions were answered. Please refer to the signed informed consent document in the medical record. Thescope was passed under direct vision. The Colonoscope was introduced through the anus and advanced to the thececum, identified by appendiceal orifice and ileocecal valve.The colonoscopy was performed without difficulty. Thepatient tolerated the procedure well. The quality of the bowel preparation was evaluated using the BBPS (Laurel Bowel Preparation Scale) with scores of: Right Colon = 2(minor amount of residual staining, small fragments of stool and/or opaque liquid, but mucosa seen well), Transverse Colon = 2 (minor amount of residual staining, small fragments of stool and/or opaque liquid, but mucosaseen well) and Left Colon = 2 (minor amount of residual staining, small fragments of stool and/or opaqueliquid, but mucosa seen well). The total BBPS score equals 6.The quality of the bowel preparation was good. The bowel preparation used was Miralax. Bowel prep wasadministered using a split dose. Findings: Hemorrhoids were found on perianal exam. Multiple medium-mouthed diverticula were found in the sigmoidcolon. The colon (entire examined portion) appeared normal. The retroflexed view of the distal rectum and anal verge was normaland showed no anal or rectal abnormalities. Impression: - Hemorrhoids found on perianal exam. - Diverticulosis in the sigmoid colon. - The entire examined colon is normal. - The distal rectum and anal verge are normal on retroflexion view. - No polyps or lesions seen. Recommendation: - [facility] The signs and symptoms of potential delayedcomplications were discussed with the patient. Return to normal activities tomorrow. Written discharge instructionswere provided to the patient. - Resume previous diet. Continue fiber supplements. - Continue present medications. - Repeat colonoscopy in 10 years for screeningpurposes. - Return to GI office as previously scheduled. Attending Participation: I personally performed the entire procedure. Electronically signed by Israel Dotson MD Israel Dotson M.D. 09/13/2020 8:13:22 AM Number of Addenda: 0 Note Initiated On: 09/13/2020 7:17 AM Scope In: Scope Out: us Israel Dotson MD ENDOSCOPY PROCEDURES Final Resul t from Last 3 Months or Most Recently Relevant to Health Maintenance Additional Health Concerns Infection Onset Date Last Indicated C. difficile Comment:Germ watcher auto flagging 04/09/2014 04/09/2014 Insurance [facility] HMO/PPO Address: [address] [place] [address] [facility] [facility] HMO/PPO Address: [address] [place] [address] [facility] HMO/PPO Address: [facility] [address] [place] [address] Advance Directives For more information, please contact: [phone] * Full Code (Latest Code Status on File) Date Activated Date Inactivated Comments 09/13/2020 7:08 AM 09/13/2020 12:53 PM Care Teams Plastics Repairer Relationship Specialty Start Date End Date Pina Song NP [address] [address] PCP - General Family Medicine 08/05/20
--- OUTSIDE RECORDS SUMMARY | 2024-10-22 11:29 | XMS_ITS | CONTINUITY OF CARE DOCUMENT ---
Author Name ary mcallister Address Unknown Organization [facility] Address [address] [address] [place] [address] Phone [phone] Care Team Providers Care Wharf Laborer Name Role Phone Sudha Villa MD Unavailable Sudha Villa MD Unavailable [phone] INSURANCE PROVIDERS Payer name Policy type / Coverage type [place] red green party ID [facility] [employer] Commercial insuran [employer] [id number]
--- OUTSIDE RECORDS SUMMARY | 2024-10-22 11:29 | XMS_ITS | Encounter Summary ---
Author Organization [facility] Address [address] [place] [address] Phone Care Team Providers Care Paper Novelty Maker Name Role Phone Pina Song NP Primary Care Provider Encounter Details Date Type Department Care Team (Late st Contact Info) Description 02/06/2021 Orders Only [facility] Orthopaedic Surgery [address] [place] [address] [place] [address] [place] [address] Social History Tobacco Use Types Packs/Day Years Used Date Smoking Tobacco: Former Cigarettes 0.5 5 1 983 - 1988 Cigars Smokeless Tobacco: Former Quit: 03/21/2003 Alcohol [...] on file Legal Sex Male 11:32 PM CHAINER Gender Identity Not on file Sexual Orientation Not on file 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 difficile Comment:Germ watcher auto flagging 04/09/2014 04/09/2014 documented as of this encounter Care Teams Paper Novelty Maker Relationship Specialty Start Date End Date Pina Song NP [address] [address] PCP - General Family Medicine 08/05/20 documented as of this encounter
--- OUTSIDE RECORDS SUMMARY | 2024-10-22 11:29 | XMS_ITS | Clinical Summary ---
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 Cardioversion to sinus rhythm. 06/2020 - Readmitted for rapid, symptomatic AF. Sotalol started. Cardioversion to sinus. Post-operative state 07/06/2019 Ganglion cyst 07/16/2018 Overview (07/16/2018): Overview: Ganglion cyst removal Achilles tendinitis of right lower extremity Overview (03/20/2018): Added automatically from request for surgery [id number] Lumbosacral radiculopathy 12/10/2017 Arthritis of lumbosacral spine [...] (degenerative disc disease), lumbar Coronary arteriosclerosis in [place] artery 02/13 Overview (01/03/2017): CRNRY ATHRSCL NATVE [...] intervertebral disc of cervical re gion 07/13/2010 Surgical History Surgery Date Site/Laterality Comments ANTERIOR CERVICAL DISCECTOMY W/ FUSION 09/30/2009 - 09/29/2010 C5-6 fusion--metal implants GANGLION CYST EXCISION 09/30/2004 - 09/29/2005 Left left wrist TONSILLECTOMY 09/30/1966 - 09/29/1967 CARDIAC CATHETERIZATION 09/30/2008 - 09/29/2009 COLONOSCOPY UPPER GASTROINTESTINAL ENDOSCOPY HEEL SPUR SURGERY 09/30/2016 - 09/29/2017 FL FLUORO GUIDED LUMBAR PUNCTURE 04/27/2022 Right Medical History Medical History Date Comments Hypertension Anxiety severe Lumbar disc disease chronic pain --surgery scheduled in next month Prostatitis five yrs prior Sahu esophagus Asthma 1999 Environmental--W hen no longer exposed to environment, no further problems Coronary artery disease cardiac cath 2009--mild CAD Hyperlipidemia GERD (gastroesophageal reflux disease) well controlled Arthritis Chest pain 3 episodes over past 3 months--mid-sternal, non radiating, not related to activity, denies SOB, pt does has diaphoresis Family history of early CAD Lumbar herniated disc H/O lithotripsy ossatron Cellulitis elbow 10 yrs sarah or Family History Medical History Relation Name Comments Hypertension Father Hypertension; Other Mother valve disorder; /carotid artery disease; Anesthesia problems Neg Hx Relation Name Status Comments Father Mother Social History Tobacco Use Types Packs/Day [...] on file Legal Sex 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 Gender Identity Not on file Sexual Orientation Not on file 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 Not on file Not on file Not on file Obstetrics History Last Filed Vital Signs Vital Sign Reading [...] 04/26/2022 5:47 PM CDT Plan of Treatment Health Maintenance Due Date Last Done Comments Depression Screening 1960 Hepatitis C Screening 1960 Pneumococcal vaccine <65 (1 of 2 - PCV) 1967 DTaP/Tdap/Td Vaccine (1 - Tdap) 1972 Hepatitis B Screening 1979 Regular Well Visit/Exam 18-64 1979 Zoster Vaccine (1 of 2) 2011 Influenza Vaccine (#1) 2024 Prostate Cancer Screening-PSA 05/31/2024 05/31/2022 Colon Cancer Screening-Colonoscopy 09/13/20302019 Colon Cancer Screening-CT Colonography Discontinued Colon Cancer Screening-DNA Stool Discontinued 09/13/20 Colon Cancer Screening-FIT Discontinued 09/13/2020 Colon Cancer Screening-Sigmoidoscopy Discontinued 08/30 Medical Devices Implanted Type Area Technical Assistance Consultant Device Identifier Shelf Expiration Date Model / Serial / Lot [employer] [id number] Corkscrew Ii Fiberwire 5.5mm 16.3mm 2 2 Full Thread [place] Suture - [id number] Implanted:Qty: 2 on 05/30/2018 by Rajan Martin MD at [facility] Other - see comments Right: [employer] 06/29/2022 [id number] / / Description:Suture [place], C orkscrew FT II Plate N/A: Neck Procedures Procedure Name Priority Date/Time Associated Diagnosis Comments PSA SCREEN Routine 05/31/2022 12:38 PM CDT Prostate cancer screening COLONOSCOPY 09/13/2020 7:17 AM CONSUMER LENDER from Last 3 Months or Most Recently Relevant to Health Maintenance Results * PSA screen (05/31/2022 12:38 PM CDT) PSA 0.6 0.0 - 4.0 ng/mL [facility] - 01 Comment: Maria Esther ECLIA methodology. According to the [place] [employer], Serum PSA should decrease and [...] 8:15 AM CDT Performed at: ??01 - [facility] [address] ??[id number] Automation Controls Expert: Jack Stokes PhD, Phone: ??[phone] Sis Hinds NP LAB BLOOD ORDERABLES Final Result [facility] - 01 * COLONOSCOPY (09/13/2020 7:17 AM CONSUMER LENDER) Anatomical Region Laterality Modality Other Narrative Procedure Note Israel Dotson MD - 09/13/2020 7:17 AM CST ENDOSCOPY LAB Patient Name: Huang Royal Procedure Date: 09/13/2020 7:17 AM Admit Type: Outpatient Room: [facility] Date of : 1960 Instrument Name: [id number] [...] bowel preparation was evaluated using the BBPS (Bond Bowel Preparation Scale) with scores of: Right [...] - Patient has a contact number available foremergencies. The signs and symptoms of potential delayedcomplications [...] 09/13/2020 7:17 AM Scope In: Scope Out: Israel Dotson MD ENDOSCOPY PROCEDURES Final Resul t from Last 3 Months or Most Recently Relevant to Health Maintenance Additional Health Concerns Infection Onset Date Last Indicated C. difficile Comment:Germ watcher auto flagging 04/09/2014 04/09/2014 Insurance [facility] CHO[facility] PLUS [facility]PPO Address: [place] [address] CHOICE PLUS [facility] H[facility]/PPO Address: [place] [address] CHOICE PLUS [facility] H[facility]/PPO Address: [address] [address] [place] [address] Advance Directives For more information, please contact: [phone] * Full Code (Latest Code Status on File) Date Activated Date Inactivated Comments 09/13/2020 7:08 AM 09/13/2020 12:53 PM Care Teams Timekeeper Relationship Specialty [place] [address] [place] [id number] PCP - General Family Medicine 08/05/20
--- OUTSIDE RECORDS SUMMARY | 2024-10-22 11:29 | XMS_ITS | Encounter Summary ---
Author Organization [facility] Address [address] [place] [address] Phone Care Team Providers Care Supervisor Insulation Name Role Phone Pina Song NP Primary Care Provider Encounter Details Date Type Department Care Team (Late st Contact Info) Description 01/16/2021 Orders Only [facility] [phone] Scanning, Provider Social History Tobacco Use Types Packs/Day Years Used Date Smoking Tobacco: Former Cigarettes 0.5 5 1 983 - 1987 Cigars Smokeless Tobacco: Former Quit: 03/21/2003 Comments:smokes occasional c igar Alcohol Use Standard Drinks/Week Comments Not Currently 22 (1 standard drink = 0.6 oz pure alcohol) Used to be heavy beer drinker AUDIT-C Answer Date Recorded Q1: How often do you have a drink containing alc ohol? 2-3 times a week 01/20/2021 Q2: How many drinks containi ng alcohol do you have on a typical day when you are drinking? 1 or 2 01/20/2021 Q3: How often do you have si x or more drinks on one occasion? 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 difficile Comment:Germ watcher auto flagging 04/09/2014 04/09/2014 documented as of this encounter Care Teams Supervisor Insulation Relationship Specialty Start Date End Date Pina Song NP [address] [address] PCP - General Family Medicine 08/05/20 documented as of this encounter
--- OUTSIDE RECORDS SUMMARY | 2024-10-22 11:38 | XMS_ITS | CONTINUITY OF CARE DOCUMENT ---
Author Name ary mcallister Address Unknown Organization [facility] Address [address] [address] [place] [address] Phone [phone] Care Team Providers Care Pulmonary Function Technician Name Role Phone Sudha Villa MD Unavailable Sudha Villa MD Unavailable INSURANCE PROVIDERS Payer name Policy type / Coverage type [place] red green party ID [facility] Doctor on [employer] Commercial insuran [employer] [id number]
== END 2024-10-19 09:28 | disposition home or self-care (01) ==
PROVIDERS: Emergency Provider Emergency Medicine; PCP Family Medicine
DX: B09 Unspecified viral infection characterized by skin and mucous membrane lesions (principal); I10 Essential (primary) hypertension
CPT/HCPCS: 36415; 71046; 80053; 82550; 83605; 85025; 96360; 99283; J7030